=== PATIENT | male | born 1960 | race Caucasian/White ===

== ENCOUNTER 2016-05-06 17:00 | Inpatient (IN) | payer BC ==
[~2016-05-06] VITALS: Ht 180.3 cm; Wt 81.6 kg
[~2016-05-06 17:00] MED LIST: ADDERALL 20 MG20 MG ORAL; ASPIR 8181 MG ORAL; ASPIRIN81 MG ORAL; BACTRIM DOUBLE S1 E1 ORAL; CIPRO500 MG/51 PO; CIPROFLOXACIN500 M2 ORAL; CLINDAMYCIN HC300 MG ORAL; COLACE100 MG ORAL; DIFLUCAN200 MG ORAL; IBUPROFEN600 MG ORAL; KEFLEX500 MG ORAL; KLONOPIN1 MG ORAL; LEVAQUIN750 MG ORAL; LOPRESSOR25 M1 ORAL; OXYCONTIN30 MG ORAL; PROTONIX40 MG ORAL; ROXICODONE30 M1 ORAL; VANCOMYCIN1 GM/2502 IVPB; VIBRAMYCIN100 MG ORAL; ZYVOX600 MG ORAL
[2016-05-06] MEDS ORDERED: Lidocaine 1% 10mg/ml/Epi 0.005mg/ml 30ml vial INJ ONE (17:34)
[2016-05-06] MEDS ORDERED: Vancomycin 1.5gm/D5W 300ml 300 ML IVPB ONE (17:45)
[2016-05-06 17:59] LABS: BASOPHILS % (AUTO) 1.5 % (0.0-2.0); EOSINOPHILS % (AUTO) 2.8 % (0.0-3.0); LYMPHOCYTES % (AUTO) 28.4 % (20.0-45.0); MEAN CORPUSCULAR HEMOGLOBIN 25.5 PG (27.0-31.0); MEAN CORPUSCULAR HGB CONC 31.5 G/DL (32.0-36.0); MEAN CORPUSCULAR VOLUME 81 FL (80-99); MEAN PLATELET VOLUME 6.3 FL (6.5-10.1); MONOCYTES % (AUTO) 5.7 % (1.0-10.0); NEUTROPHILS % (AUTO) 61.6 % (45.0-75.0); PLATELET COUNT 468 K/UL (150-450); RED BLOOD COUNT 5.16 M/UL (4.70-6.10); RED CELL DISTRIBUTION WIDTH 16.6 % (11.6-14.8); WHITE BLOOD COUNT 9.1 K/UL (4.8-10.8)
--- NOTE | 2016-05-06 18:04 | Emergency Room Report ---
History of Present Illness General Chief Complaint: Skin Rash/Abscess Source: Patient Present Illness HPI Patient is a 56-year-old male who presented after increased abscess to his right upper extremity. The patient had recently noticed some subjective fever. He reported having had increased swelling to his right upper extremities. The patient denied injection drug use. Patient reports prior history of abscess Allergies: Coded Allergies: PENICILLINS (Unverified Allergy, Severe, 09/23/15) 09/23/15 tolerates cefepime Patient History Past Medical History: see triage record Reviewed Nursing Documentation: PMH: Agreed, PSxH: Agreed Nursing Documentation-PMH Hx Cardiac Problems: Yes - CHF, cellulitis Hx Hypertension: Yes Hx Pacemaker: No Hx Asthma: No Hx COPD: No Hx Diabetes: Yes Hx Cancer: No Hx Gastrointestinal Problems: Yes Hx Neurological Problems: No Hx Neurologic Surgery: No Hx Brain Shunt: No Review of Systems All Other Systems: negative except mentioned in HPI Physical Exam Vital Signs Date Time Temp Pulse Resp B/P Pulse Ox O2 Delivery O2 Flow Rate FiO2 05/06/16 17:16 97.5 94 17 109/58 98 Room Air Sp02 EP Interpretation: reviewed, normal General Appearance: normal inspection, well appearing, no apparent distress, alert, GCS 15, non-toxic Head: atraumatic ENT: normal ENT inspection, hearing grossly normal, normal voice Neck: normal inspection, full range of motion, supple, no bony tend Respiratory: normal inspection, lungs clear, normal breath sounds, no respiratory distress, no retraction, no wheezing Cardiovascular #1: regular rate, rhythm, no edema Gastrointestinal: normal inspection, normal bowel sounds, non tender, soft, no guarding, no hernia Genitourinary: no CVA tenderness Musculoskeletal: normal inspection, back normal, normal range of motion Neurologic: normal inspection, alert, oriented x3, responsive, floor framer III-XII nml as tested, speech normal Psychiatric: normal inspection, judgement/insight normal, mood/affect normal Skin: other - multiple indurated areas consistent with abscess Procedures Incision and Drainage Incision and Drainage : Consent: Written Site: right hand and wrist Blade Size: 11 I & D Procedure: betadine prep, sterile drapes applied, sterile dressing applied Wound Location: upper extremity Wound's Depth, Shape: superficial, linear Wound Length (cm): 1 Wound Explored: clean Anesthesia: Lidocaine w/ Epi Volume Anesthetic (ccs): 6 Patient Tolerated: Well Complications: None Medical Decision Making Diagnostic Impression: Primary Impression: Abscess and cellulitis Additional Impression: Severe sepsis ER Course Patient is a 48-year-old male presented after increased skin rash and subjective fever. Differential diagnosis included was not limited to abscess, severe sepsis, dehydration and among others.Because of complexity of patient's case laboratory testing and imaging studies were ordered. The laboratory studies are notable for elevated white blood count lactic acid level. The patient was given IV fluids as well as IV antibiotics. The patient was consented for incision and drainage. The patient was noted to have multiple skin lesions however only the lesions on his right hand appeared to require incision and drainage at this time. The the right wrist lesion near his radial artery that was incised with approximately 3 mL of purulent material. The lesion to the dorsum of his right hand had minimal amount of purulent drainage. The patient's lactic acid level is noted be markedly elevated. The patient does not appear to have necrotizing fasciitis. The patient was discussed with Dr. Zimmerman for inpatient management Labs Test 05/06/16 17:40 05/06/16 18:50 05/06/16 19:05 White Blood Count 9.1 K/UL (4.8-10.8) Red Blood Count 5.16 M/UL (4.70-6.10) Hemoglobin 13.1 G/DL (14.2-18.0) Hematocrit 41.7 % (42.0-52.0) Mean Corpuscular Volume 81 FL (80-99) Mean Corpuscular Hemoglobin 25.5 PG (27.0-31.0) Mean Corpuscular Hemoglobin Concent 31.5 G/DL (32.0-36.0) Red Cell Distribution Width 16.6 % (11.6-14.8) Platelet Count 468 K/UL (150-450) Mean Platelet Volume 6.3 FL (6.5-10.1) Neutrophils (%) (Auto) 61.6 % (45.0-75.0) Lymphocytes (%) (Auto) 28.4 % (20.0-45.0) Monocytes (%) (Auto) 5.7 % (1.0-10.0) Eosinophils (%) (Auto) 2.8 % (0.0-3.0) Basophils (%) (Auto) 1.5 % (0.0-2.0) Prothrombin Time 10.6 SEC (9.30-11.50) Prothromb Time International Ratio 1.0 (0.9-1.1) Activated Partial Thromboplast Time 28 SEC (23-33) Sodium Level 137 mEQ/L (135-145) Potassium Level 4.6 mEQ/L (3.4-4.9) Chloride Level 95 mEQ/L (98-107) Carbon Dioxide Level 25 mEQ/L (20-30) Anion Gap 17 (5-15) Blood Urea Nitrogen 18 mg/dL (7-23) Creatinine 1.0 mg/dL (0.7-1.2) Estimat Glomerular Filtration Rate > 60 mL/min (>60) Glucose Level 148 mg/dL (74-106) Lactic Acid Level 5.50 mmol/L (0.66-2.22) 2.70 mmol/L (0.66-2.22) Calcium Level 9.6 mg/dL (8.6-10.2) Total Bilirubin 0.4 mg/dL (0.0-1.2) Aspartate Amino Transf (AST/SGOT) 42 U/L (5-40) Alanine Aminotransferase (ALT/SGPT) 105 U/L (3-41) Alkaline Phosphatase 96 U/L (40-129) Total Creatine Kinase 47 U/L (38-174) Creatine Kinase MB 2.0 ng/mL (< 6.7) Creatine Kinase MB Relative Index 4.2 Troponin I < 0.30 ng/mL (<=0.30) Total Protein 8.1 g/dL (6.6-8.7) Albumin 3.8 g/dL (3.5-5.2) Globulin 4.3 g/dL Albumin/Globulin Ratio 0.8 (1.0-2.7) Urine Color Yellow Urine Appearance Clear Urine pH 5 (4.5-8.0) Urine Specific [place] 1.020 (1.005-1.035) Urine Protein Negative (NEGATIVE) Urine Glucose (UA) Negative (NEGATIVE) Urine Ketones Negative (NEGATIVE) Urine Occult Blood 1+ (NEGATIVE) Urine Nitrite Negative (NEGATIVE) Urine Bilirubin Negative (NEGATIVE) Urine Urobilinogen 4 MG/DL (0.0-1.0) Urine Leukocyte Esterase Negative (NEGATIVE) Urine RBC 0-2 /HPF (0 - 0) Urine WBC 0-2 /HPF (0 - 0) Urine Squamous Epithelial Cells None /LPF (NONE/OCC) Urine Calcium Oxalate Crystals Moderate /LPF (NONE) Urine Bacteria Few /HPF (NONE) Last Vital Signs Date Time Temp Pulse Resp B/P Pulse Ox O2 Delivery O2 Flow Rate FiO2 05/06/16 17:16 97.5 94 17 109/58 98 Room Air Status: improved Disposition: ADMITTED INPATIENT Condition: Serious Referrals: SAMUEL AMARO (PCP) Jim Duarte May 06, 2016 18:04
[2016-05-06 18:13] LABS: ALANINE AMINOTRANSFERASE 105 U/L (3-41); ALBUMIN/GLOBULIN RATIO 0.8 (1.0-2.7); ANION GAP 17 (5-15); ASPARTATE AMINO TRANSFERASE 42 U/L (5-40); CALCIUM 9.6 mg/dL (8.6-10.2); CARBON DIOXIDE 25 mEQ/L (20-30); CHLORIDE 95 mEQ/L (98-107); GLOMERULAR FILTRATION RATE > 60 mL/min (>60); HEMOLYSIS 0; POTASSIUM 4.6 mEQ/L (3.4-4.9); SODIUM 137 mEQ/L (135-145); TOTAL PROTEIN 8.1 g/dL (6.6-8.7); TROPONIN I < 0.30 ng/mL (<=0.30)
[2016-05-06 18:19] LABS: PROTHROMBIN TIME 10.6 SEC (9.30-11.50)
[2016-05-06 18:20] LABS: REFLEX LACTIC ACID YES OR NO YES
[2016-05-06] MEDS ORDERED: Ketorolac 30mg Inj IV ONE (18:45)
[2016-05-06 19:10] VITALS: BP 129/78
[2016-05-06 19:22] LABS: APPEARANCE,URINE CLEAR; KETONES,URINE NEGATIVE (NEGATIVE); LEUKOCYTE ESTERASE ,URINE NEGATIVE (NEGATIVE); NITRITE,URINE NEGATIVE (NEGATIVE); PH,URINE 5 (4.5-8.0); PROTEIN,URINE NEGATIVE (NEGATIVE); UROBILINOGEN,URINE 4 MG/DL (0.0-1.0)
[2016-05-06 19:41] LABS: BACTERIA,URINE FEW /HPF; CALCIUM OXALATE CRYSTALS,UR MODERATE /LPF; RBC,URINE 0-2 /HPF (0 - 0); WBC,URINE 0-2 /HPF (0 - 0)
[2016-05-06 20:33] VITALS: BP 122/67
[2016-05-06] MEDS: oxyCONTIN 10mg tab ORAL SCH (21:50)
[2016-05-06] MEDS ORDERED: cefTRIAXone 1 GM in D5W 50 ML IVPB SCH (23:00)
[2016-05-07] VITALS: BP 133/75
[2016-05-07] MEDS: oxyCODONE 5mg IR tab ORAL PRN ×3 (02:05→16:45)
[2016-05-07 04:00] VITALS: BP 101/66
[2016-05-07] MEDS: Vancomycin 1250mg/D5W 250ml IVPB SCH ×4 (06:05→19:27)
[2016-05-07 08:14] VITALS: BP 129/71
[2016-05-07] MEDS ORDERED: Influenza Virus Vaccine 0.5ml IM ONE (09:00)
[2016-05-07] MEDS: oxyCONTIN 10mg tab ORAL SCH ×2 (09:40→20:55)
--- NOTE | 2016-05-07 10:31 | Diagnostic Imaging Report ---
Indication: SOB Technique: One view of the chest Comparison: 10/20/2015 Findings: Lungs and pleural spaces are clear. Heart size is normal. No significant change Impression: No acute process
[2016-05-07 11:20] LABS: BASOPHILS % (AUTO) 1.8 % (0.0-2.0); EOSINOPHILS % (AUTO) 2.8 % (0.0-3.0); LYMPHOCYTES % (AUTO) 21.9 % (20.0-45.0); MEAN CORPUSCULAR HEMOGLOBIN 24.7 PG (27.0-31.0); MEAN CORPUSCULAR VOLUME 80 FL (80-99); MEAN PLATELET VOLUME 6.5 FL (6.5-10.1); MONOCYTES % (AUTO) 6.8 % (1.0-10.0); NEUTROPHILS % (AUTO) 66.8 % (45.0-75.0); PLATELET COUNT 470 K/UL (150-450); RED BLOOD COUNT 5.19 M/UL (4.70-6.10); RED CELL DISTRIBUTION WIDTH 16.4 % (11.6-14.8); WHITE BLOOD COUNT 7.8 K/UL (4.8-10.8)
[2016-05-07 11:28] LABS: ALANINE AMINOTRANSFERASE 81 U/L (3-41); ALBUMIN/GLOBULIN RATIO 0.8 (1.0-2.7); ANION GAP 14 (5-15); ASPARTATE AMINO TRANSFERASE 32 U/L (5-40); CALCIUM 8.8 mg/dL (8.6-10.2); CARBON DIOXIDE 25 mEQ/L (20-30); CHLORIDE 98 mEQ/L (98-107); CREATININE 0.9 mg/dL (0.7-1.2); GLOMERULAR FILTRATION RATE > 60 mL/min (>60); HEMOLYSIS 0; POTASSIUM 4.2 mEQ/L (3.4-4.9); SODIUM 137 mEQ/L (135-145); TOTAL PROTEIN 6.7 g/dL (6.6-8.7)
[2016-05-07] MEDS ORDERED: Pneumococcal Vaccine 25mcg/0.5ml IM ONE (11:30)
[2016-05-07 11:50] VITALS: BP 125/77
--- NOTE | 2016-05-07 13:39 | History & Physical ---
History and Physical History & Physicial Dictated for Int Med-Dr Zimmerman no. [id number]. KADIE CAMP May 07, 2016 13:39
[2016-05-07 15:44] VITALS: BP 113/68
[2016-05-07] MEDS ORDERED: NS 275ml ONE (17:48)
[2016-05-07] MEDS ORDERED: Tubing IV Secondary IV ONE (17:48)
[2016-05-07 20:01] VITALS: BP 113/61
--- NOTE | 2016-05-07 22:37 | History and Physical Report ---
DATE OF ADMISSION: 05/06/2016 CHIEF COMPLAINT: The patient is a 56-year-old, white male, who presents with complaint of abscess to the right upper extremity. HISTORY OF PRESENT ILLNESS: The patient has a long history of intravenous drug abuse. The patient is also on skin popped opiate. The patient was previously admitted to [facility] in 01/2016 with similar problems. The patient's history of present illness began approximately 4 days ago. The patient began to experience abscess of the right upper extremity. The patient has approximately 4 abscesses, which are currently draining a serosanguineous and purulent material. The patient also has a couple on the left upper extremity. The patient presented to [facility]. The patient was admitted for abscesses of the bilateral upper extremities secondary to IV drug abuse. PAST MEDICAL HISTORY: Significant for, 1. Previous abscess of the upper arms. 2. Opiate dependence. 3. Congestive heart failure. 4. Hypercholesterolemia. 5. Hepatitis C. 6. History of hypertension. PAST SURGICAL HISTORY: Other than incision and drainage of abscesses patient denies. ALLERGIES: Penicillin. SOCIAL HISTORY: The patient is currently unemployed. 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 The patient admits to tobacco use of one pack per day, however, he has not smoked for the past 8 months. The patient denies alcohol use. The patient admits to opiate use intravenously. The patient denies other drugs abuse. REVIEW OF SYSTEMS: Constitutional: The patient denies weight loss or weight gain. The patient denies fevers or chills. HEENT: The patient denies ear or throat pain. Cardiovascular: The patient denies palpitations or chest pain. Chest: The patient denies wheeze or shortness of breath. Abdomen: The patient denies nausea, vomiting, diarrhea, or constipation. Genitourinary: The patient denies dysuria or increased frequency of urination. Neuromuscular: The patient denies seizures or generalized weakness. Integument: The patient complains of multiple episodes over the bilateral upper extremities as above. PHYSICAL EXAMINATION: VITAL SIGNS: Temperature 98.1 degrees, respirations 16, pulse 74, and blood pressure 122/67. GENERAL: The patient is a well-developed, well-nourished, white male, disheveled, in no apparent distress. HEENT: Eyes, pupils are equal and responsive to light and accommodation. Extraocular movements are intact. NECK: Supple without lymphadenopathy. CHEST: Lungs are clear to auscultation bilaterally without wheezes or rales. CARDIOVASCULAR: Regular rhythm and rate. S1 and S2 are normal without murmurs, rubs, or gallops. ABDOMEN: Soft, nontender, and nondistended. Positive bowel sounds. No evidence of hepatosplenomegaly. Currently, no rebound or guarding. EXTREMITIES: Negative for clubbing, cyanosis, or edema. INTEGUMENT: Presence of multiple abscesses over the right upper extremity and two abscess over the left upper extremity. There is erythema at the bilateral triceps area. NEUROLOGIC: Cranial nerves II through XII are grossly intact without focal deficits. Motor strength is 5/5 bilaterally. Deep tendon reflexes are 2+ plantar. LABORATORY STUDIES: WBC 9.1, hemoglobin 13.1, hematocrit 41.7, and platelets 460,000. Sodium 137, potassium 4.6, chloride 95, CO2 25, BUN 18, creatinine 1.0, and glucose 148. ASSESSMENT: This is a 56-year-old white male. 1. Abscess of the right upper extremity. 2. Opiate dependence. 3. Congestive heart failure. 4. Hypercholesterolemia. 5. Hepatitis C. 6. Hypertension. TREATMENT: 1. Abscess to the right upper extremity. An Infectious Disease consultation was obtained with Dr. Esquivel. Blood cultures are pending. A wound culture is pending. The patient has been started empirically on vancomycin and Levaquin. 2. Opiate dependence. The patient may require inpatient detoxication. Continue oxycodone and OxyContin. 3. Congestive heart failure, stable. 4. Hypercholesterolemia, stable. 5. Hepatitis C, stable. 6. Hypertension, stable. Jose Savage M.D. DR: GENO JOB#: [id number] CC:
[2016-05-08] VITALS: BP 127/70
[2016-05-08 04:00] VITALS: BP 124/77
[2016-05-08] MEDS: oxyCODONE 5mg IR tab ORAL PRN ×2 (04:26→16:02)
[2016-05-08] MEDS: Vancomycin 1250mg/D5W 250ml IVPB SCH ×4 (05:59→19:21)
[2016-05-08 07:39] LABS: BASOPHILS % (AUTO) 1.8 % (0.0-2.0); EOSINOPHILS % (AUTO) 3.5 % (0.0-3.0); LYMPHOCYTES % (AUTO) 24.6 % (20.0-45.0); MEAN CORPUSCULAR HEMOGLOBIN 24.8 PG (27.0-31.0); MEAN CORPUSCULAR HGB CONC 30.8 G/DL (32.0-36.0); MEAN CORPUSCULAR VOLUME 81 FL (80-99); MEAN PLATELET VOLUME 6.4 FL (6.5-10.1); MONOCYTES % (AUTO) 5.4 % (1.0-10.0); NEUTROPHILS % (AUTO) 64.8 % (45.0-75.0); PLATELET COUNT 445 K/UL (150-450); RED BLOOD COUNT 4.94 M/UL (4.70-6.10); RED CELL DISTRIBUTION WIDTH 16.1 % (11.6-14.8); WHITE BLOOD COUNT 8.6 K/UL (4.8-10.8)
[2016-05-08 07:54] LABS: ANION GAP 16 (5-15); CARBON DIOXIDE 24 mEQ/L (20-30); CHLORIDE 99 mEQ/L (98-107); CREATININE 0.8 mg/dL (0.7-1.2); GLOMERULAR FILTRATION RATE > 60 mL/min (>60); HEMOLYSIS 0; POTASSIUM 3.9 mEQ/L (3.4-4.9); SODIUM 139 mEQ/L (135-145)
[2016-05-08] MEDS: oxyCONTIN 10mg tab ORAL SCH ×2 (08:40→20:30)
[2016-05-08 12:43] VITALS: BP 110/72
--- NOTE | 2016-05-08 14:43 | Internal Med Progress Note ---
Subjective Date of Service: May 08, 2016 Physician Name Jose Capm Attending Physician Cecilio Zimmerman MD Current Medications Medications (Trade) Dose Ordered Sig/Carmine Route PRN Reason Start Time Stop Time Status Last Admin Dose Admin Acetaminophen 650 mg 650 mg Q4H PRN ORAL Mild Pain/Temp > 100.5 05/06/16 21:15 06/05/16 21:14 Clonazepam (KlonoPIN) 2 mg Q12HR ORAL 05/07/16 09:00 05/14/16 08:59 05/08/16 08:41 Dextrose (Dextrose 50%) STAT PRN IV Hypoglycemia 05/06/16 21:15 06/05/16 21:14 Levofloxacin (Levaquin) 100 ml @ 100 mls/hr Q24H IVPB 05/07/16 15:00 05/14/16 14:59 05/07/16 15:49 Ondansetron HCl (Zofran) 4 mg EVERY 4 HOURS PRN IVP Nausea & Vomiting 05/06/16 21:15 06/05/16 21:14 Oxycodone HCl (OxyCONTIN) 30 mg Q12HR ORAL 05/06/16 21:15 05/13/16 21:14 05/08/16 08:40 Oxycodone HCl (Roxicodone) 10 mg Q4H PRN ORAL Breakthrough Pain 05/06/16 21:15 05/13/16 21:14 05/08/16 04:26 Vancomycin HCl (Vanco rx to dose) 1 ea DAILY PRN MISC Per rx protocol 05/06/16 21:15 06/05/16 21:14 Vancomycin HCl 1.25 gm/Dextrose 250 ml @ 166.667 mls/hr Q12H IVPB 05/07/16 07:00 05/12/16 06:59 05/08/16 05:59 Allergies: Coded Allergies: PENICILLINS (Unverified Allergy, Severe, 09/23/15) 09/23/15 tolerates cefepime ROS Limited/Unobtainable: No Constitutional: Reports: no symptoms HEENT: Reports: no symptoms Cardiovascular: Reports: no symptoms Respiratory: Reports: no symptoms Gastrointestinal/Abdominal: Reports: no symptoms Genitourinary: Reports: no symptoms Neurologic/Psychiatric: Reports: no symptoms Subjective Cover for Int Med-Dr Zimmerman. Await transfer to [facility]. Await surgery consult. Objective Last Vital Signs Date Time Temp Pulse Resp B/P Pulse Ox O2 Delivery O2 Flow Rate FiO2 05/08/16 12:43 97.9 103 20 110/72 97 Room Air General Appearance: WD/WN, no apparent distress, alert EENT: PERRL/EOMI, normal ENT inspection Neck: non-tender, normal alignment, supple, normal inspection Cardiovascular: normal peripheral pulses, normal rate, regular rhythm, no gallop/murmur, no JVD Respiratory/Chest: chest wall non-tender, lungs clear, normal breath sounds, no respiratory distress, no accessory muscle use Abdomen: normal bowel sounds, non tender, soft, no organomegaly, no mass Extremities: other - right arm abscesses Neurologic: general forecaster II-XII grossly normal, no motor/sensory deficits Skin: normal pigmentation, warm/dry, other - abscesses right arm Laboratory Tests Test 05/08/16 07:30 White Blood Count 8.6 K/UL (4.8-10.8) Red Blood Count 4.94 M/UL (4.70-6.10) Hemoglobin 12.3 G/DL (14.2-18.0) L Hematocrit 39.8 % (42.0-52.0) L Mean Corpuscular Volume 81 FL (80-99) Mean Corpuscular Hemoglobin 24.8 PG (27.0-31.0) L Mean Corpuscular Hemoglobin Concent 30.8 G/DL (32.0-36.0) L Red Cell Distribution Width 16.1 % (11.6-14.8) H Platelet Count 445 K/UL (150-450) Mean Platelet Volume 6.4 FL (6.5-10.1) L Neutrophils (%) (Auto) 64.8 % (45.0-75.0) Lymphocytes (%) (Auto) 24.6 % (20.0-45.0) Monocytes (%) (Auto) 5.4 % (1.0-10.0) Eosinophils (%) (Auto) 3.5 % (0.0-3.0) H Basophils (%) (Auto) 1.8 % (0.0-2.0) Sodium Level 139 mEQ/L (135-145) Potassium Level 3.9 mEQ/L (3.4-4.9) Chloride Level 99 mEQ/L (98-107) Carbon Dioxide Level 24 mEQ/L (20-30) Anion Gap 16 (5-15) H Blood Urea Nitrogen 12 mg/dL (7-23) Creatinine 0.8 mg/dL (0.7-1.2) Estimat Glomerular Filtration Rate > 60 mL/min (>60) Glucose Level 140 mg/dL (74-106) H Calcium Level 9.0 mg/dL (8.6-10.2) Opiates Screen Pending Oxycodone Level Pending Blood Methadone Screen Pending Blood Propoxyphene Screen Pending Blood Barbiturates Screen Pending Phencyclidine (PCP) Screen Pending Amphetamines Screen Pending Benzodiazepines Screen Pending Blood Cocaine/Metabolite Screen Pending Marijuana (THC) Screen Pending Blood Drug Screen Comment Pending Microbiology Date/Time Source Procedure Growth Status 05/06/16 17:50 Blood Blood Culture - Preliminary NO GROWTH AFTER 24 HOURS Resulted 05/06/16 17:40 Blood Blood Culture - Preliminary NO GROWTH AFTER 24 HOURS Resulted 05/06/16 19:13 Hand Right Gram Stain - Final Resulted 05/06/16 19:13 Wound Culture - Preliminary Staphylococcus Aureus Resulted Intake and Output 05/07/16 05/08/16 18:59 06:59 Intake Total 1107 ml 1650 ml Output Total 2100 ml 1400 ml Balance -993 ml 250 ml Intake Oral 840 ml 1400 ml IV Total 267 ml 250 ml Output Urine Total 2100 ml 1400 ml # Voids 1 3 Assessment/Plan Problem List: (1) Hepatitis C (2) Abscess and cellulitis Assessment & Plan: Right arm. Await ID consult and surgery consult. Cont vanco and levaquin (3) Opiate dependence, continuous Assessment & Plan: Cont oxycodone prn and oxycontin routine. Await transfer to [facility] @ . [facility] hosp @ [place] (4) CHF (congestive heart failure) (5) Hypertension (6) Hypercholesteremia Status: not improved JOSE CAMP May 08, 2016 14:43
--- NOTE | 2016-05-08 14:44 | Infectious Diseases Prog Note ---
Assessment/Plan Assessment/Plan A) 1) bilateral arm abscess/cellulitis - multiple 2) hep c, cps, cpm, opiate dependancy, dm, gerd, htn, anemia, ? neuro dx, leukopenia, chf hx, hypercholesteremia, hx renal failure 3) allergies - pcn, fh-nc, mar noted, sh-past smoker, mar noted 4) notes and records reviewed 5) d/w RN and pt P) 1) vancomycin and cefepime (tolerated in past) 2) surgery evaluation for I/D 3) check labs 4) continue other treatment per primary 5) orders entered and noted 6) d/w pharmacy 7) d/w Dr. Savage Subjective Allergies: Coded Allergies: PENICILLINS (Unverified Allergy, Severe, 09/23/15) 09/23/15 tolerates cefepime Objective Vital Signs Last 24 Hour Vital Signs Date Time Temp Pulse Resp B/P Pulse Ox O2 Delivery O2 Flow Rate FiO2 05/08/16 12:43 97.9 103 20 110/72 97 Room Air 05/08/16 04:00 99.0 98 17 124/77 99 05/08/16 00:00 97.7 101 18 127/70 98 Room Air 05/07/16 20:01 98.2 100 21 113/61 96 Room Air 05/07/16 15:44 98.1 91 21 113/68 100 Room Air Height (Feet): 5 Height (Inches): 11.00 Weight (Pounds): 180 Microbiology Date/Time Source Procedure Growth Status 05/06/16 17:50 Blood Blood Culture - Preliminary NO GROWTH AFTER 24 HOURS Resulted 05/06/16 17:40 Blood Blood Culture - Preliminary NO GROWTH AFTER 24 HOURS Resulted 05/06/16 19:13 Hand Right Gram Stain - Final Resulted 05/06/16 19:13 Wound Culture - Preliminary Staphylococcus Aureus Resulted Laboratory Tests Test 05/08/16 07:30 White Blood Count 8.6 K/UL (4.8-10.8) Red Blood Count 4.94 M/UL (4.70-6.10) Hemoglobin 12.3 G/DL (14.2-18.0) L Hematocrit 39.8 % (42.0-52.0) L Mean Corpuscular Volume 81 FL (80-99) Mean Corpuscular Hemoglobin 24.8 PG (27.0-31.0) L Mean Corpuscular Hemoglobin Concent 30.8 G/DL (32.0-36.0) L Red Cell Distribution Width 16.1 % (11.6-14.8) H Platelet Count 445 K/UL (150-450) Mean Platelet Volume 6.4 FL (6.5-10.1) L Neutrophils (%) (Auto) 64.8 % (45.0-75.0) Lymphocytes (%) (Auto) 24.6 % (20.0-45.0) Monocytes (%) (Auto) 5.4 % (1.0-10.0) Eosinophils (%) (Auto) 3.5 % (0.0-3.0) H Basophils (%) (Auto) 1.8 % (0.0-2.0) Sodium Level 139 mEQ/L (135-145) Potassium Level 3.9 mEQ/L (3.4-4.9) Chloride Level 99 mEQ/L (98-107) Carbon Dioxide Level 24 mEQ/L (20-30) Anion Gap 16 (5-15) H Blood Urea Nitrogen 12 mg/dL (7-23) Creatinine 0.8 mg/dL (0.7-1.2) Estimat Glomerular Filtration Rate > 60 mL/min (>60) Glucose Level 140 mg/dL (74-106) H Calcium Level 9.0 mg/dL (8.6-10.2) Opiates Screen Pending Oxycodone Level Pending Blood Methadone Screen Pending Blood Propoxyphene Screen Pending Blood Barbiturates Screen Pending Phencyclidine (PCP) Screen Pending Amphetamines Screen Pending Benzodiazepines Screen Pending Blood Cocaine/Metabolite Screen Pending Marijuana (THC) Screen Pending Blood Drug Screen Comment Pending Current Medications Medications (Trade) Dose Ordered Sig/Carmine Route PRN Reason Start Time Stop Time Status Last Admin Dose Admin Acetaminophen 650 mg 650 mg Q4H PRN ORAL Mild Pain/Temp > 100.5 05/06/16 21:15 06/05/16 21:14 Cefepime HCl/ Dextrose (Maxipime/D5W 50ml) 50 ml @ 100 mls/hr Q12HR IVPB 05/08/16 21:00 05/15/16 20:59 UNV Clonazepam (KlonoPIN) 2 mg Q12HR ORAL 05/07/16 09:00 05/14/16 08:59 05/08/16 08:41 Dextrose (Dextrose 50%) STAT PRN IV Hypoglycemia 05/06/16 21:15 06/05/16 21:14 Ondansetron HCl (Zofran) 4 mg EVERY 4 HOURS PRN IVP Nausea & Vomiting 05/06/16 21:15 06/05/16 21:14 Oxycodone HCl (OxyCONTIN) 30 mg Q12HR ORAL 05/06/16 21:15 05/13/16 21:14 05/08/16 08:40 Oxycodone HCl (Roxicodone) 10 mg Q4H PRN ORAL Breakthrough Pain 05/06/16 21:15 05/13/16 21:14 05/08/16 04:26 Vancomycin HCl (Vanco rx to dose) 1 ea DAILY PRN MISC Per rx protocol 05/06/16 21:15 06/05/16 21:14 Vancomycin HCl 1.25 gm/Dextrose 250 ml @ 166.667 mls/hr Q12H IVPB 05/07/16 07:00 05/12/16 06:59 05/08/16 05:59 SAMUEL AMARO May 08, 2016 14:44
[2016-05-08 16:00] VITALS: BP 143/50
[2016-05-08 20:00] VITALS: BP 138/79
--- NOTE | 2016-05-08 20:57 | Consultation ---
DATE OF CONSULTATION: 05/08/2016 INFECTIOUS DISEASE CONSULTATION REFERRING PHYSICIAN: 1. Cecilio Zimmerman M.D. 2. Jose Savage M.D. REASON FOR CONSULTATION: Bilateral arm abscesses. The patient's chief complaint is bilateral arm abscesses and also cellulitis. HISTORY OF PRESENT ILLNESS: This is a 56-year-old male who came into [facility] with bilateral arm abscesses and cellulitis. There are multiple abscesses, seen in both right and left upper extremities. The abscesses I saw are painful, and also inflamed. The patient looks like he was drained, may be in the emergency room, I reviewed the records to see if he was drained in the emergency room. He did get an incision and drainage of one of the upper extremity abscess. However, he has multiple abscess and will need further surgical intervention, incision and drainage. Infectious Disease consultation was requested for antibiotic management. On one of the abscess is growing staph aureus, sensitivities are pending. The patient will be on vancomycin for now. Discussed with Dr. Savage and pharmacy. MAR was noted. Orders were noted. Notes and records were reviewed. Case was communicated with RN. PAST MEDICAL HISTORY: Includes the following, obtained from the records and discussing with the patient. The patient has a past medical history of abscess in the past, cellulitis, history of hepatitis C, chronic pain syndrome, chronic pain management, opiate dependence, history of diabetes, GERD, hypertension, anemia, questionable neurologic disease, leukopenia, CHF, hypercholesterolemia, and history of renal failure in the past. MEDICATIONS: Upon reviewing the MAR, the patient is on following medications. The patient is on vancomycin. He was on Levaquin, which he discontinued. He is also on Klonopin. He is on Zofran and Tylenol. Outside medications were noted and reconciliated. He was on clonazepam. Please see medications and past medical history and medical order. ALLERGIES: Penicillin, but he tolerates cephalosporin. SOCIAL HISTORY: Past smoker. No alcohol or drug abuse. FAMILY HISTORY: Noncontributory. REVIEW OF SYSTEMS: Constitutional: The patient has generalized weakness and fatigue. No fever or chills. No weight loss. Head And Neck: No thrush, dysphagia, or sinus tenderness. Cardiac: Denies chest pain or palpitations. Gastrointestinal: No nausea, vomiting or diarrhea. Genitourinary: No dysuria or frequency. Pulmonary: No shortness of breath, cough, or sputum production. Skin: He does have abscess in both upper extremities noted and pain. Extremities: No extremity pain. Neurologic: No seizures. PHYSICAL EXAMINATION: GENERAL: The patient is alert and responsive, oriented x3, no acute distress. He has generalized weakness noted. VITAL SIGNS: Temperature 97.9 degrees, pulse rate 103, respiratory rate 20, blood pressure 110/72, and saturating 97%. HEAD AND NECK: Oral exam, no thrush. Eye exam, no icterus. Neck is supple. No JVD. No sinus tenderness. Normocephalic. No facial droop. No neck stiffness. No tachypnea. LUNGS: Clear bilaterally. No rhonchi or rales. HEART: Regular. No gallop or murmur. No friction rub. ABDOMEN: Soft. Positive bowel sounds. Nontender. No organomegaly. SKIN: No rash or dermatitis. MUSCULOSKELETAL: No effusions or contractures. Legs are without cellulitis. EXTREMITIES: Upper extremity exam, he has multiple abscesses inflamed with secondary to cellulitis in bilateral extremities, noted fluctuance. PERIPHERAL VASCULAR: No cyanosis or gangrene. RECTAL: Deferred. GENITOURINARY: No Harman. LINES: Line sites is without phlebitis. NEUROLOGIC: Intact. Nonfocal. Alert and oriented x3. LABORATORY AND DIAGNOSTIC DATA: Creatinine 0.8. White count 8.6 and hemoglobin 12.3. Cultures, blood cultures are negative. Wound culture for abscesses on the right shows staph aureus. ASSESSMENT AND PLAN: 1. The patient is a 56-year-old male with bilateral likely staphylococcus aureus upper extremity abscesses, rule out methicillin-resistant Staphylococcus aureus, which I believe he has a history of. The patient to continue on vancomycin IV for staphylococcus aureus and methicillin-resistant Staphylococcus aureus coverage. The patient will need further incision and drainage of the multiple abscesses and cellulitis. I suggest a surgical evaluation by , called surgery to see this patient for incision and drainage candidate. Wound care protocol. Continue IV vancomycin and surgical followup and check the labs. 2. Hepatitis C. 3. Chronic pain syndrome management. 4. Opiate dependence. 5. Diabetes mellitus. 6. Gastroesophageal reflux disease. 7. Hypertension. 8. Anemia. 9. Questionable neurologic disease. 10. Leukopenia history. 11. History of congestive heart failure. 12. Hypercholesterolemia. 13. History of renal failure. 14. Allergy to penicillin. 15. Social history, past smoker. 16. Case discussed with Dr. Savage. 17. Case discussed with RN. 18. Case discussed with the patient. 19. MAR was noted. 20. Notes were reviewed. Thank you. I will follow. Glenny Esquivel M.D. DR: BEVERLY JOB#: [id number] CC:
[2016-05-09 00:04] VITALS: BP 121/76
[2016-05-09] MEDS: oxyCODONE 5mg IR tab ORAL PRN ×5 (02:10→23:27)
[2016-05-09 04:09] VITALS: BP 134/74
[2016-05-09] MEDS: Vancomycin 1250mg/D5W 250ml IVPB SCH ×4 (06:08→18:53)
--- NOTE | 2016-05-09 08:10 | Pre-Procedure Note/Attestation ---
Pre-Procedure Note/Attestation Complete Prior to Procedure Planned Procedure: left Procedure Narrative: incision and drainage, irrigation and packing of left arm abscesses Indications for Procedure Pre-Operative Diagnosis: left arm abscesses Attestation I attest that I discussed the nature of the procedure; its benefits; risks and complications; and alternatives (and the risks and benefits of such alternatives ), prior to the procedure, with the patient (or the patient's legal corporate sales representative). I attest that, if there was a reasonable possibility of needing a blood transfusion, the patient (or the patient's legal corporate sales representative) was given the [facility] standardized written summary, pursuant to the Noah Gina Blood Safety Act ([place] Health and Safety Code # 1645, as amended). I attest that I re-evaluated the patient just prior to the surgery and that there has been no change in the patient's H&P, except as documented below:TAYLOR Plunkett May 09, 2016 08:10
--- NOTE | 2016-05-09 08:20 | Brief Operative Note ---
Immediate Post Operative Note Operative Note Pre-op Diagnosis: left arm abscesses Procedure: incision and drainage irrigation and packing of left arm abscesses Post-op Diagnosis: same Surgeon: iram Anesthesiologist: local by surgeon Anesthesia: local Specimen: none Complications: none Condition: stable Estimated Blood Loss: minimal Drains: none Packing: iodoform gauze Implant(s) used?: No TAYLOR JASSO May 09, 2016 08:20
[2016-05-09] MEDS: oxyCONTIN 10mg tab ORAL SCH ×2 (09:26→20:34)
--- NOTE | 2016-05-09 10:08 | Consultation ---
DATE OF CONSULTATION: 05/09/2016 PLANT INSPECTOR: Kelvin Garcia M.D. REASON FOR CONSULTATION: 1. IVDA 2. Left arm abscesses. INDICATION: This 56-year-old gentleman well known to us from multiple previous admissions. The patient has an unfortunate history of IV drug use. He has had multiple previous abscesses in the past and has undergone incision drainage of abscesses here. He had skin popped and opiate began approximately six days ago to have inflammation and pain of the right arm and also developed large wounds on the left arm. The ones on the right arm had drained spontaneously. He has large fluctuant masses on the left upper arm, one above the antecubital fossa and one over the lateral biceps with erythema and local tenderness, mass affect. I was asked to see the patient for surgical management of same. PAST MEDICAL HISTORY: Aside from IVDA, has history of congestive heart failure, hypercholesterolemia, hepatitis C, and hypertension. No other surgeries other than 90s. ALLERGIES: To penicillin. 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 Denies EtOH. PHYSICAL EXAMINATION: GENERAL: Reveals a well-developed, pleasant gentleman, in no acute distress, awake, alert and cooperative. VITAL SIGNS: His vital signs show a temperature 97.0 degrees, pulse of 100, respiratory rate 18, and blood pressure 134/74. HEENT: Normocephalic. Pupils are round and reactive to light. His throat is clear. NECK: Supple. HEART: Normal sinus rhythm. ABDOMEN: Soft and nontender. EXTREMITIES: The patient has multiple abscesses of the right upper extremity that appeared to be well drained has two abscesses on the left arm, one at antecubital fossa laterally and one at the level of the biceps with erythema. LABORATORY DATA: Show a white blood count of 8.6, hemoglobin 12.2, hematocrit 39.8, and platelet count is 445,000. Coagulations show PT of 10.6, INR of 1. Chemistry shows a sodium 139, potassium 3.9, chloride 99, bicarbonate of 24, BUN is 12, creatinine 0.8, and glucose is 140, alkaline phosphatase is 80, AST of 32, ALT of 31, total bilirubin 0.3. Total protein 6.7, albumin 3.1. Gram stain of the right hand did grow Staph aureus. Sensitivity pending. Blood cultures were negative. IMPRESSION: 1. History of intravenous drug abuse. 2. Multiple abscesses bilateral extremities. RECOMMENDATION: The patient will undergo incision, drainage, irrigation, packing of left arm abscesses. He understands above procedures, benefits, complications and agrees. Kelvin Garcia M.D. DR: MAJOR JOB#: [id number] CC: EVA
--- NOTE | 2016-05-09 10:08 | Operative Note - Dictated ---
DATE OF OPERATION: 05/09/2016 SURGEON: Kelvin Garcia M.D. ANESTHESIA: Local by surgeon. PREOPERATIVE DIAGNOSIS: 1. IVDA. 2. Left arm abscesses. POSTOPERATIVE DIAGNOSIS: 1. IVDA. 2. Left arm abscesses PROCEDURE: Incision, drainage, irrigation, packing of left arm abscesses. INDICATION FOR PROCEDURE: After informed consent was obtained, the patient was placed in supine position. The area was prepped with Betadine and draped in a sterile manner. Local infiltration with total 10 mL of 1% lidocaine with epinephrine over both abscesses and 2 cm long incision was made over each abscess with immediate drainage of laudable pus. The pus was cultured. Pus was expressed from both abscess cavities then irrigated with lidocaine and normal saline. Wounds gently probed to make sure there is no undrained areas. Wound was packed with a strip of iodoform gauze and then wrapped with 4x4s and a Kerlix roll. Blood loss for the entire procedure was less than 10 mL. The patient tolerated the procedure well. Kelvin Garcia M.D. DR: MAJOR JOB#: [id number] CC: EVA
[2016-05-09 12:00] VITALS: BP 144/69
[2016-05-09 13:06] VITALS: BP 144/63
[2016-05-09 14:38] LABS: BASOPHILS % (AUTO) 1.5 % (0.0-2.0); EOSINOPHILS % (AUTO) 4.7 % (0.0-3.0); LYMPHOCYTES % (AUTO) 29.9 % (20.0-45.0); MEAN CORPUSCULAR HEMOGLOBIN 25.8 PG (27.0-31.0); MEAN CORPUSCULAR HGB CONC 32.7 G/DL (32.0-36.0); MEAN CORPUSCULAR VOLUME 79 FL (80-99); MEAN PLATELET VOLUME 6.4 FL (6.5-10.1); MONOCYTES % (AUTO) 4.9 % (1.0-10.0); NEUTROPHILS % (AUTO) 59.1 % (45.0-75.0); PLATELET COUNT 423 K/UL (150-450); RED BLOOD COUNT 4.71 M/UL (4.70-6.10); RED CELL DISTRIBUTION WIDTH 16.3 % (11.6-14.8); WHITE BLOOD COUNT 8.9 K/UL (4.8-10.8)
[2016-05-09 14:55] LABS: ANION GAP 14 (5-15); CARBON DIOXIDE 27 mEQ/L (20-30); CHLORIDE 98 mEQ/L (98-107); CREATININE 0.9 mg/dL (0.7-1.2); GLOMERULAR FILTRATION RATE > 60 mL/min (>60); HEMOLYSIS 4; SODIUM 139 mEQ/L (135-145)
[2016-05-09 17:00] VITALS: BP 136/77
[2016-05-09] MEDS ORDERED: NS 275ml ONE (17:12)
--- NOTE | 2016-05-09 19:11 | Internal Med Progress Note ---
Subjective Date of Service: May 09, 2016 Physician Name Kadie Savage Attending Physician Cecilio Zimmerman MD Current Medications Medications (Trade) Dose Ordered Sig/Carmine Route PRN Reason Start Time Stop Time Status Last Admin Dose Admin Acetaminophen 650 mg 650 mg Q4H PRN ORAL Mild Pain/Temp > 100.5 05/06/16 21:15 06/05/16 21:14 Clonazepam (KlonoPIN) 2 mg Q12HR ORAL 05/07/16 09:00 05/14/16 08:59 05/09/16 09:26 Dextrose (Dextrose 50%) STAT PRN IV Hypoglycemia 05/06/16 21:15 06/05/16 21:14 Ondansetron HCl (Zofran) 4 mg EVERY 4 HOURS PRN IVP Nausea & Vomiting 05/06/16 21:15 06/05/16 21:14 Oxycodone HCl (OxyCONTIN) 30 mg Q12HR ORAL 05/06/16 21:15 05/13/16 21:14 05/09/16 09:26 Oxycodone HCl (Roxicodone) 10 mg Q4H PRN ORAL Breakthrough Pain 05/06/16 21:15 05/13/16 21:14 05/09/16 16:55 Vancomycin HCl (Vanco rx to dose) 1 ea DAILY PRN MISC Per rx protocol 05/06/16 21:15 06/05/16 21:14 Vancomycin HCl/ Dextrose (Vancomycin/D5W 250ml) 250 ml @ 166.667 mls/hr Q12H IVPB 05/07/16 07:00 05/12/16 06:59 05/09/16 18:53 Allergies: Coded Allergies: PENICILLINS (Unverified Allergy, Severe, 09/23/15) 09/23/15 tolerates cefepime ROS Limited/Unobtainable: No Subjective Cover for Int Twin-Dr Zimmerman. Not accepted to [facility]. S/P incision and drainage left arm abscess today 05/09/16. Objective Last Vital Signs Date Time Temp Pulse Resp B/P Pulse Ox O2 Delivery O2 Flow Rate FiO2 05/09/16 17:00 97.7 96 18 136/77 97 Room Air Laboratory Tests Test 05/09/16 14:15 White Blood Count 8.9 K/UL (4.8-10.8) Red Blood Count 4.71 M/UL (4.70-6.10) Hemoglobin 12.2 G/DL (14.2-18.0) L Hematocrit 37.2 % (42.0-52.0) L Mean Corpuscular Volume 79 FL (80-99) L Mean Corpuscular Hemoglobin 25.8 PG (27.0-31.0) L Mean Corpuscular Hemoglobin Concent 32.7 G/DL (32.0-36.0) Red Cell Distribution Width 16.3 % (11.6-14.8) H Platelet Count 423 K/UL (150-450) Mean Platelet Volume 6.4 FL (6.5-10.1) L Neutrophils (%) (Auto) 59.1 % (45.0-75.0) Lymphocytes (%) (Auto) 29.9 % (20.0-45.0) Monocytes (%) (Auto) 4.9 % (1.0-10.0) Eosinophils (%) (Auto) 4.7 % (0.0-3.0) H Basophils (%) (Auto) 1.5 % (0.0-2.0) Sodium Level 139 mEQ/L (135-145) Potassium Level 4.0 mEQ/L (3.4-4.9) Chloride Level 98 mEQ/L (98-107) Carbon Dioxide Level 27 mEQ/L (20-30) Anion Gap 14 (5-15) Blood Urea Nitrogen 15 mg/dL (7-23) Creatinine 0.9 mg/dL (0.7-1.2) Estimat Glomerular Filtration Rate > 60 mL/min (>60) Glucose Level 143 mg/dL (74-106) H Calcium Level 9.0 mg/dL (8.6-10.2) Microbiology Date/Time Source Procedure Growth Status 05/06/16 19:13 Hand Right Gram Stain - Final Resulted 05/06/16 19:13 Wound Culture - Preliminary Staphylococcus Aureus Resulted Intake and Output 05/08/16 05/09/16 19:00 07:00 Intake Total 1150 ml 1350 ml Output Total 775 ml 800 ml Balance 375 ml 550 ml Intake Oral 1150 ml 1100 ml IV Total 250 ml Output Urine Total 775 ml 800 ml # Voids 1 3 Objective General Appearance: WD/WN, no apparent distress, alert EENT: PERRL/EOMI, normal ENT inspection Neck: non-tender, normal alignment, supple, normal inspection Cardiovascular: normal peripheral pulses, normal rate, regular rhythm, no gallop/murmur, no JVD Respiratory/Chest: chest wall non-tender, lungs clear, normal breath sounds, no respiratory distress, no accessory muscle use Abdomen: normal bowel sounds, non tender, soft, no organomegaly, no mass Extremities: other - right arm abscesses 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 See ID consult and surgery consult. S/P incision and drainage today 05/09/16. Cont vanco and D/C levaquin per ID (3) Opiate dependence, continuous Assessment & Plan: Cont oxycodone prn and oxycontin routine. Not accepted to [facility] hosp @ [place]; await sober living (eg. [place] vs [facility] vs the [place], etc) (4) CHF (congestive heart failure) (5) Hypertension (6) Hypercholesteremia Assessment/Plan Discharge planning: Sober living vs SNF for IV KADIE Buitrago May 09, 2016 19:11
[2016-05-09 20:00] VITALS: BP 138/79
[2016-05-10] VITALS: BP 164/118
[2016-05-10] MEDS: oxyCODONE 5mg IR tab ORAL PRN ×4 (03:34→23:08)
[2016-05-10 04:00] VITALS: BP 109/70
[2016-05-10] MEDS ORDERED: Heparin 2000 units/Ns 1000ml INJ SCH (06:00)
[2016-05-10] MEDS ORDERED: Sodium Bicarbonate 8.4% 50ml Inj IV SCH (06:00)
[2016-05-10] MEDS ORDERED: Lidocaine 1% Plain 30 ml INJ SCH (06:00)
[2016-05-10] MEDS: Vancomycin 1250mg/D5W 250ml IVPB SCH ×2 (06:08)
[2016-05-10] MEDS: oxyCONTIN 10mg tab ORAL SCH ×2 (09:09→21:39)
--- NOTE | 2016-05-10 09:14 | General Surgery Progress Note ---
General Surgery-Progress Note Subjective Reason for Consult upper extremity abscess Procedure Performed I&D left upper extremity abscess Symptoms: improved Additional Comments patient seen and examined at bedside without acute events. doing well. comfortable. no n/v/f/c. tolerating oral diet. states pain from I&D but improved as compared to prior. Objective Last 24 Hour Vital Signs Date Time Temp Pulse Resp B/P Pulse Ox O2 Delivery O2 Flow Rate FiO2 05/10/16 04:00 97.9 77 18 109/70 95 Room Air 05/10/16 00:00 97.9 86 18 164/118 98 Room Air 05/09/16 20:00 98.2 100 18 138/79 95 Room Air 05/09/16 17:00 97.7 96 18 136/77 97 Room Air 05/09/16 13:06 98.0 102 19 144/63 99 Room Air 05/09/16 12:00 98.0 102 18 144/69 99 Room Air I&O Intake and Output 05/09/16 05/10/16 19:00 07:00 Intake Total 840 ml 1250 ml Output Total 1900 ml Balance 840 ml -650 ml Intake Oral 840 ml 1000 ml IV Total 250 ml Output Urine Total 1900 ml # Voids 2 Dressing: dry Wound: clean Drains: none Cardiovascular: RSR Respiratory: clear Abdomen: soft, non-tender Extremities: edema, other - left upper extremity wound packing removed, wound clean. no purulent drainage noted. new packing and dressings applied. right upper extremity wounds clean and healing. Laboratory Tests Test 05/09/16 14:15 White Blood Count 8.9 K/UL (4.8-10.8) Red Blood Count 4.71 M/UL (4.70-6.10) Hemoglobin 12.2 G/DL (14.2-18.0) L Hematocrit 37.2 % (42.0-52.0) L Mean Corpuscular Volume 79 FL (80-99) L Mean Corpuscular Hemoglobin 25.8 PG (27.0-31.0) L Mean Corpuscular Hemoglobin Concent 32.7 G/DL (32.0-36.0) Red Cell Distribution Width 16.3 % (11.6-14.8) H Platelet Count 423 K/UL (150-450) Mean Platelet Volume 6.4 FL (6.5-10.1) L Neutrophils (%) (Auto) 59.1 % (45.0-75.0) Lymphocytes (%) (Auto) 29.9 % (20.0-45.0) Monocytes (%) (Auto) 4.9 % (1.0-10.0) Eosinophils (%) (Auto) 4.7 % (0.0-3.0) H Basophils (%) (Auto) 1.5 % (0.0-2.0) Sodium Level 139 mEQ/L (135-145) Potassium Level 4.0 mEQ/L (3.4-4.9) Chloride Level 98 mEQ/L (98-107) Carbon Dioxide Level 27 mEQ/L (20-30) Anion Gap 14 (5-15) Blood Urea Nitrogen 15 mg/dL (7-23) Creatinine 0.9 mg/dL (0.7-1.2) Estimat Glomerular Filtration Rate > 60 mL/min (>60) Glucose Level 143 mg/dL (74-106) H Calcium Level 9.0 mg/dL (8.6-10.2) Assessment Post-op Diagnosis 56 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 also has multiple chronic wounds from prior I&D and infections. states he has had these for a while and attempts care of them himself in the streets sometimes. All wounds evaluated, cleaned, and new dressings applied. Plan Additional Comments Continue with current care and management IV Abx Wound care - Left Upper Extremity packing and dressings BID ; Right upper extremity w/ dressings PRN okay to use upper extremities without limitations okay to shower - remove dressings, shower, then apply new dressings. okay to get wounds wet. Olegario Suero MD May 10, 2016 09:14
[2016-05-10 09:51] LABS: BASOPHILS % (AUTO) 2.2 % (0.0-2.0); EOSINOPHILS % (AUTO) 6.6 % (0.0-3.0); LYMPHOCYTES % (AUTO) 35.5 % (20.0-45.0); MEAN CORPUSCULAR HEMOGLOBIN 25.7 PG (27.0-31.0); MEAN CORPUSCULAR HGB CONC 31.4 G/DL (32.0-36.0); MEAN CORPUSCULAR VOLUME 82 FL (80-99); MEAN PLATELET VOLUME 6.5 FL (6.5-10.1); MONOCYTES % (AUTO) 7.5 % (1.0-10.0); NEUTROPHILS % (AUTO) 48.3 % (45.0-75.0); PLATELET COUNT 407 K/UL (150-450); RED CELL DISTRIBUTION WIDTH 16.4 % (11.6-14.8); WHITE BLOOD COUNT 7.4 K/UL (4.8-10.8)
[2016-05-10 10:04] LABS: ANION GAP 12 (5-15); CALCIUM 9.2 mg/dL (8.6-10.2); CARBON DIOXIDE 27 mEQ/L (20-30); CHLORIDE 98 mEQ/L (98-107); GLOMERULAR FILTRATION RATE > 60 mL/min (>60); HEMOLYSIS 3; POTASSIUM 4.1 mEQ/L (3.4-4.9); SODIUM 137 mEQ/L (135-145)
--- NOTE | 2016-05-10 14:33 | Infectious Diseases Prog Note ---
Assessment/Plan Assessment/Plan A) 1) mrsa bilateral arm abscess/cellulitis - s/p I/D, wounds clean per surgery note 2) hep c, cps, cpm, opiate dependancy, dm, gerd, htn, anemia, ? neuro dx, leukopenia, chf hx, hypercholesteremia, hx renal failure 3) allergies - pcn, fh-nc, mar noted, sh-past smoker, mar noted 4) notes and records reviewed 5) d/w RN and pt P) 1) vancomycin for now 2) consider oral abx in next 24 hrs if continues to improve, treat total of 10 days post I/D 3) check labs 4) continue other treatment per primary, wound care per surgery 5) orders entered and noted 6) d/w pharmacy 7) d/w Dr. Savage Subjective Constitutional: Denies: fever HEENT: Denies: congestion Respiratory: Denies: shortness of breath Gastrointestinal/Abdominal: Denies: diarrhea, vomiting Genitourinary: Reports: other, Denies: dysuria, hematuria Neurologic: Denies: headache - no preston Psychiatric: Denies: depression Skin: Denies: rash Hematologic: Denies: bleeding Musculoskeletal: Denies: pain Allergies: Coded Allergies: PENICILLINS (Unverified Allergy, Severe, 09/23/15) 09/23/15 tolerates cefepime Objective Vital Signs Last 24 Hour Vital Signs Date Time Temp Pulse Resp B/P Pulse Ox O2 Delivery O2 Flow Rate FiO2 05/10/16 04:00 97.9 77 18 109/70 95 Room Air 05/10/16 00:00 97.9 86 18 164/118 98 Room Air 05/09/16 20:00 98.2 100 18 138/79 95 Room Air 05/09/16 17:00 97.7 96 18 136/77 97 Room Air Height (Feet): 5 Height (Inches): 11.00 Weight (Pounds): 180 General Appearance: no acute distress HEENT: normocephalic, atraumatic, anicteric, mucous membranes moist, PERRL, EOMI, pharynx normal, supple, no JVD Respiratory/Chest: lungs clear, normal breath sounds, no respiratory distress, no accessory muscle use Cardiovascular: normal rate, regular rhythm, no gallop/murmur, no JVD Abdomen: normal bowel sounds, soft, non tender, no organomegaly, non distended Genitourinary: other - no foely Extremities: no cyanosis, other - s/p I/D abscesses, wounds covered Skin: no rash 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, alert, oriented x 3, responsive Lymphatic: no neck adenopathy Musculoskeletal: no effusion Objective chest x-ray - negative Microbiology Date/Time Source Procedure Growth Status 05/09/16 08:05 Wound Gram Stain - Final Resulted 05/09/16 08:05 Wound Wound Culture - Preliminary Resulted wc - mrsa Laboratory Tests Test 05/09/16 14:15 05/10/16 09:15 White Blood Count 8.9 K/UL (4.8-10.8) 7.4 K/UL (4.8-10.8) Red Blood Count 4.71 M/UL (4.70-6.10) 4.70 M/UL (4.70-6.10) Hemoglobin 12.2 G/DL (14.2-18.0) L 12.1 G/DL (14.2-18.0) L Hematocrit 37.2 % (42.0-52.0) L 38.5 % (42.0-52.0) L Mean Corpuscular Volume 79 FL (80-99) L 82 FL (80-99) Mean Corpuscular Hemoglobin 25.8 PG (27.0-31.0) L 25.7 PG (27.0-31.0) L Mean Corpuscular Hemoglobin Concent 32.7 G/DL (32.0-36.0) 31.4 G/DL (32.0-36.0) L Red Cell Distribution Width 16.3 % (11.6-14.8) H 16.4 % (11.6-14.8) H Platelet Count 423 K/UL (150-450) 407 K/UL (150-450) Mean Platelet Volume 6.4 FL (6.5-10.1) L 6.5 FL (6.5-10.1) Neutrophils (%) (Auto) 59.1 % (45.0-75.0) 48.3 % (45.0-75.0) Lymphocytes (%) (Auto) 29.9 % (20.0-45.0) 35.5 % (20.0-45.0) Monocytes (%) (Auto) 4.9 % (1.0-10.0) 7.5 % (1.0-10.0) Eosinophils (%) (Auto) 4.7 % (0.0-3.0) H 6.6 % (0.0-3.0) H Basophils (%) (Auto) 1.5 % (0.0-2.0) 2.2 % (0.0-2.0) H Sodium Level 139 mEQ/L (135-145) 137 mEQ/L (135-145) Potassium Level 4.0 mEQ/L (3.4-4.9) 4.1 mEQ/L (3.4-4.9) Chloride Level 98 mEQ/L (98-107) 98 mEQ/L (98-107) Carbon Dioxide Level 27 mEQ/L (20-30) 27 mEQ/L (20-30) Anion Gap 14 (5-15) 12 (5-15) Blood Urea Nitrogen 15 mg/dL (7-23) 15 mg/dL (7-23) Creatinine 0.9 mg/dL (0.7-1.2) 1.0 mg/dL (0.7-1.2) Estimat Glomerular Filtration Rate > 60 mL/min (>60) > 60 mL/min (>60) Glucose Level 143 mg/dL (74-106) H 110 mg/dL (74-106) H Calcium Level 9.0 mg/dL (8.6-10.2) 9.2 mg/dL (8.6-10.2) Current Medications Medications (Trade) Dose Ordered Sig/Carmine Route PRN Reason Start Time Stop Time Status Last Admin Dose Admin Acetaminophen 650 mg 650 mg Q4H PRN ORAL Mild Pain/Temp > 100.5 05/06/16 21:15 06/05/16 21:14 Clonazepam (KlonoPIN) 2 mg Q12HR ORAL 05/07/16 09:00 05/14/16 08:59 05/10/16 09:08 Dextrose (Dextrose 50%) STAT PRN IV Hypoglycemia 05/06/16 21:15 06/05/16 21:14 Heparin Sodium/ Sodium Chloride (Heparin 2000 units/Ns 1000ml premix) 2,000 unit ONCE INJ 05/10/16 06:00 05/10/16 23:59 Lidocaine HCl (Xylocaine 1% 30ml) 30 ml ONCE INJ 05/10/16 06:00 05/10/16 23:59 Ondansetron HCl (Zofran) 4 mg EVERY 4 HOURS PRN IVP Nausea & Vomiting 05/06/16 21:15 06/05/16 21:14 Oxycodone HCl (OxyCONTIN) 30 mg Q12HR ORAL 05/06/16 21:15 05/13/16 21:14 05/10/16 09:09 Oxycodone HCl (Roxicodone) 10 mg Q4H PRN ORAL Breakthrough Pain 05/06/16 21:15 05/13/16 21:14 05/10/16 13:06 Sodium Bicarbonate (Sodium Bicarbonate) 50 ml ONCE IV 05/10/16 06:00 05/10/16 23:59 Vancomycin HCl (Vanco rx to dose) 1 ea DAILY PRN MISC Per rx protocol 05/06/16 21:15 06/05/16 21:14 Vancomycin HCl/ Dextrose (Vancomycin/D5W 250ml) 250 ml @ 166.667 mls/hr Q12H IVPB 05/07/16 07:00 05/12/16 06:59 05/10/16 06:08 SAMUEL AMARO May 10, 2016 14:33
[2016-05-10 16:08] VITALS: BP 126/57
--- NOTE | 2016-05-10 18:38 | Internal Med Progress Note ---
Subjective Date of Service: May 10, 2016 Physician Name Jose Camp Attending Physician Cecilio Zimmerman MD Current Medications Medications (Trade) Dose Ordered Sig/Carmine Route PRN Reason Start Time Stop Time Status Last Admin Dose Admin Acetaminophen (Tylenol) 650 mg Q4H PRN ORAL Mild Pain/Temp > 100.5 05/06/16 21:15 06/05/16 21:14 Clonazepam (KlonoPIN) 2 mg Q12HR ORAL 05/07/16 09:00 05/14/16 08:59 05/10/16 09:08 Dextrose (Dextrose 50%) STAT PRN IV Hypoglycemia 05/06/16 21:15 06/05/16 21:14 Heparin Sodium/ Sodium Chloride 2000 unit 2,000 unit ONCE INJ 05/10/16 06:00 05/10/16 23:59 Lidocaine HCl (Xylocaine 1% 30ml) 30 ml ONCE INJ 05/10/16 06:00 05/10/16 23:59 Ondansetron HCl (Zofran) 4 mg EVERY 4 HOURS PRN IVP Nausea & Vomiting 05/06/16 21:15 06/05/16 21:14 Oxycodone HCl (OxyCONTIN) 30 mg Q12HR ORAL 05/06/16 21:15 05/13/16 21:14 05/10/16 09:09 Oxycodone HCl (Roxicodone) 10 mg Q4H PRN ORAL Breakthrough Pain 05/06/16 21:15 05/13/16 21:14 05/10/16 13:06 Sodium Bicarbonate (Sodium Bicarbonate) 50 ml ONCE IV 05/10/16 06:00 05/10/16 23:59 Vancomycin HCl (Vanco rx to dose) 1 ea DAILY PRN MISC Per rx protocol 05/10/16 14:45 06/09/16 23:59 Vancomycin HCl/ Dextrose (Vancomycin/D5W 250ml) 250 ml @ 166.667 mls/hr Q12H IVPB 05/10/16 19:00 05/15/16 18:59 Allergies: Coded Allergies: PENICILLINS (Unverified Allergy, Severe, 09/23/15) 09/23/15 tolerates cefepime ROS Limited/Unobtainable: No Constitutional: Reports: no symptoms HEENT: Reports: no symptoms Cardiovascular: Reports: no symptoms Respiratory: Reports: no symptoms Gastrointestinal/Abdominal: Reports: no symptoms Genitourinary: Reports: no symptoms Neurologic/Psychiatric: Reports: no symptoms Subjective Cover for Int Med-Dr Zimmerman. Not accepted to [facility]. S/P incision and drainage left arm abscess 05/09/16. Objective Last Vital Signs Date Time Temp Pulse Resp B/P Pulse Ox O2 Delivery O2 Flow Rate FiO2 05/10/16 16:08 97.3 86 25 126/57 98 Room Air Laboratory Tests Test 05/10/16 09:15 White Blood Count 7.4 K/UL (4.8-10.8) Red Blood Count 4.70 M/UL (4.70-6.10) Hemoglobin 12.1 G/DL (14.2-18.0) L Hematocrit 38.5 % (42.0-52.0) L Mean Corpuscular Volume 82 FL (80-99) Mean Corpuscular Hemoglobin 25.7 PG (27.0-31.0) L Mean Corpuscular Hemoglobin Concent 31.4 G/DL (32.0-36.0) L Red Cell Distribution Width 16.4 % (11.6-14.8) H Platelet Count 407 K/UL (150-450) Mean Platelet Volume 6.5 FL (6.5-10.1) Neutrophils (%) (Auto) 48.3 % (45.0-75.0) Lymphocytes (%) (Auto) 35.5 % (20.0-45.0) Monocytes (%) (Auto) 7.5 % (1.0-10.0) Eosinophils (%) (Auto) 6.6 % (0.0-3.0) H Basophils (%) (Auto) 2.2 % (0.0-2.0) H Sodium Level 137 mEQ/L (135-145) Potassium Level 4.1 mEQ/L (3.4-4.9) Chloride Level 98 mEQ/L (98-107) Carbon Dioxide Level 27 mEQ/L (20-30) Anion Gap 12 (5-15) Blood Urea Nitrogen 15 mg/dL (7-23) Creatinine 1.0 mg/dL (0.7-1.2) Estimat Glomerular Filtration Rate > 60 mL/min (>60) Glucose Level 110 mg/dL (74-106) H Calcium Level 9.2 mg/dL (8.6-10.2) Microbiology Date/Time Source Procedure Growth Status 05/09/16 08:05 Wound Gram Stain - Final Resulted 05/09/16 08:05 Wound Wound Culture - Preliminary Resulted Intake and Output 05/09/16 05/10/16 19:00 07:00 Intake Total 840 ml 1250 ml Output Total 1900 ml Balance 840 ml -650 ml Intake Oral 840 ml 1000 ml IV Total 250 ml Output Urine Total 1900 ml # Voids 2 Objective General Appearance: WD/WN, no apparent distress, alert EENT: PERRL/EOMI, normal ENT inspection Neck: non-tender, normal alignment, supple, normal inspection Cardiovascular: normal peripheral pulses, normal rate, regular rhythm, no gallop/murmur, no JVD Respiratory/Chest: chest wall non-tender, lungs clear, normal breath sounds, no respiratory distress, no accessory muscle use Abdomen: normal bowel sounds, non tender, soft, no organomegaly, no mass Extremities: other - right arm abscesses 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 See ID consult and surgery consult. S/P incision and drainage 05/09/16. Cont vanco and D/C levaquin per ID (3) Opiate dependence, continuous Assessment & Plan: Cont oxycodone prn and oxycontin routine. Not accepted to [facility] @ [facility] hosp @ [place]; await sober living (eg. [facility] [place] [facility] vs the [place], etc) (4) CHF (congestive heart failure) (5) Hypertension (6) Hypercholesteremia Assessment/Plan Discharge planning: Sober living on 05/11/16. Will need to change to oral antibiotic prior to discharge. JOSE CAMP May 10, 2016 18:38
[2016-05-10 20:00] VITALS: BP 108/58
[2016-05-10 23:58] VITALS: BP 110/65
[2016-05-11 04:00] VITALS: BP 108/69
[2016-05-11] MEDS: oxyCODONE 5mg IR tab ORAL PRN ×3 (05:59→18:52)
[2016-05-11 08:00] VITALS: BP 133/71
[2016-05-11] MEDS: oxyCONTIN 10mg tab ORAL SCH ×2 (09:20→20:40)
--- NOTE | 2016-05-11 10:42 | General Surgery Progress Note ---
General Surgery-Progress Note Subjective Procedure Performed I&D left upper extremity abscess Symptoms: improved Additional Comments patient seen and examined at bedside. doing well. pain improved. no issues. no complaints. Objective Last 24 Hour Vital Signs Date Time Temp Pulse Resp B/P Pulse Ox O2 Delivery O2 Flow Rate FiO2 05/11/16 08:00 97.3 88 18 133/71 99 05/11/16 04:00 97.4 83 18 108/69 99 Room Air 05/10/16 23:58 96.6 86 18 110/65 98 Room Air 05/10/16 20:00 98.1 98 21 108/58 93 Room Air 05/10/16 16:08 97.3 86 25 126/57 98 Room Air I&O Intake and Output 05/10/16 05/11/16 19:00 07:00 Intake Total 480 ml 1657 ml Output Total 1000 ml 1600 ml Balance -520 ml 57 ml Intake Oral 480 ml 1240 ml IV Total 417 ml Output Urine Total 1000 ml 1600 ml # Voids 3 # Bowel Movements 1 1 Dressing: dry Wound: clean Drains: none Cardiovascular: RSR Respiratory: clear Abdomen: soft, non-tender Extremities: other - wounds improved. no erythema, edema improved. Assessment Post-op Diagnosis 56 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 also has multiple chronic wounds from prior I&D and infections. states he has had these for a while and attempts care of them himself in the streets sometimes. Plan Additional Comments all wounds evaluated and new dressings applied dressings changes BID continue Abx as per primary team will continue to follow with you. Olegario Suero MD May 11, 2016 10:42
[2016-05-11 12:00] VITALS: BP 139/85
[2016-05-11 13:42] LABS: EOSINOPHILS % (AUTO) 6.9 % (0.0-3.0); LYMPHOCYTES % (AUTO) 39.6 % (20.0-45.0); MEAN CORPUSCULAR HEMOGLOBIN 26.1 PG (27.0-31.0); MEAN CORPUSCULAR HGB CONC 32.6 G/DL (32.0-36.0); MEAN CORPUSCULAR VOLUME 80 FL (80-99); NEUTROPHILS % (AUTO) 45.6 % (45.0-75.0); PLATELET COUNT 406 K/UL (150-450); RED BLOOD COUNT 4.71 M/UL (4.70-6.10); RED CELL DISTRIBUTION WIDTH 17.1 % (11.6-14.8); WHITE BLOOD COUNT 6.8 K/UL (4.8-10.8)
[2016-05-11 13:54] LABS: ANION GAP 12 (5-15); CALCIUM 8.9 mg/dL (8.6-10.2); CARBON DIOXIDE 28 mEQ/L (20-30); CHLORIDE 98 mEQ/L (98-107); CREATININE 1.1 mg/dL (0.7-1.2); GLOMERULAR FILTRATION RATE > 60 mL/min (>60); HEMOLYSIS 4; POTASSIUM 4.9 mEQ/L (3.4-4.9); SODIUM 138 mEQ/L (135-145)
[2016-05-11 16:00] VITALS: BP 110/58
--- NOTE | 2016-05-11 17:29 | Internal Med Progress Note ---
Subjective Date of Service: May 11, 2016 Physician Name Kadie Camp Attending Physician Cecilio Zimmerman MD Current Medications Medications (Trade) Dose Ordered Sig/Carmine Route PRN Reason Start Time Stop Time Status Last Admin Dose Admin Acetaminophen 650 mg 650 mg Q4H PRN ORAL Mild Pain/Temp > 100.5 05/06/16 21:15 06/05/16 21:14 Clonazepam (KlonoPIN) 2 mg Q12HR ORAL 05/07/16 09:00 05/14/16 08:59 05/11/16 09:20 Dextrose (Dextrose 50%) STAT PRN IV Hypoglycemia 05/06/16 21:15 06/05/16 21:14 Ondansetron HCl (Zofran) 4 mg EVERY 4 HOURS PRN IVP Nausea & Vomiting 05/06/16 21:15 06/05/16 21:14 Oxycodone HCl (OxyCONTIN) 30 mg Q12HR ORAL 05/06/16 21:15 05/13/16 21:14 05/11/16 09:20 Oxycodone HCl (Roxicodone) 10 mg Q4H PRN ORAL Breakthrough Pain 05/06/16 21:15 05/13/16 21:14 05/11/16 13:36 Vancomycin HCl (Vanco rx to dose) 1 ea DAILY PRN MISC Per rx protocol 05/10/16 14:45 06/09/16 23:59 Vancomycin HCl/ Dextrose (Vancomycin/D5W 250ml) 250 ml @ 166.667 mls/hr Q12H IVPB 05/10/16 19:00 05/15/16 18:59 05/11/16 06:00 Allergies: Coded Allergies: PENICILLINS (Unverified Allergy, Severe, 09/23/15) 09/23/15 tolerates cefepime ROS Limited/Unobtainable: No Constitutional: Reports: no symptoms HEENT: Reports: no symptoms Cardiovascular: Reports: no symptoms Respiratory: Reports: no symptoms Gastrointestinal/Abdominal: Reports: no symptoms Genitourinary: Reports: no symptoms Neurologic/Psychiatric: Reports: no symptoms Subjective Cover for Int [facility]-Dr Zimmerman. Not accepted to [facility]; await auth from insurance for sober living fac. S/P incision and drainage left arm abscess 05/09/16. Objective Last Vital Signs Date Time Temp Pulse Resp B/P Pulse Ox O2 Delivery O2 Flow Rate FiO2 05/11/16 16:00 98.4 98 18 110/58 98 Room Air Laboratory Tests Test 05/11/16 13:00 White Blood Count 6.8 K/UL (4.8-10.8) Red Blood Count 4.71 M/UL (4.70-6.10) Hemoglobin 12.3 G/DL (14.2-18.0) L Hematocrit 37.6 % (42.0-52.0) L Mean Corpuscular Volume 80 FL (80-99) Mean Corpuscular Hemoglobin 26.1 PG (27.0-31.0) L Mean Corpuscular Hemoglobin Concent 32.6 G/DL (32.0-36.0) Red Cell Distribution Width 17.1 % (11.6-14.8) H Platelet Count 406 K/UL (150-450) Mean Platelet Volume 7.0 FL (6.5-10.1) Neutrophils (%) (Auto) 45.6 % (45.0-75.0) Lymphocytes (%) (Auto) 39.6 % (20.0-45.0) Monocytes (%) (Auto) 6.0 % (1.0-10.0) Eosinophils (%) (Auto) 6.9 % (0.0-3.0) H Basophils (%) (Auto) 2.0 % (0.0-2.0) Sodium Level 138 mEQ/L (135-145) Potassium Level 4.9 mEQ/L (3.4-4.9) Chloride Level 98 mEQ/L (98-107) Carbon Dioxide Level 28 mEQ/L (20-30) Anion Gap 12 (5-15) Blood Urea Nitrogen 17 mg/dL (7-23) Creatinine 1.1 mg/dL (0.7-1.2) Estimat Glomerular Filtration Rate > 60 mL/min (>60) Glucose Level 107 mg/dL (74-106) H Calcium Level 8.9 mg/dL (8.6-10.2) Microbiology Date/Time Source Procedure Growth Status 05/09/16 08:05 Wound Gram Stain - Final Resulted 05/09/16 08:05 Wound Culture - Preliminary Staphylococcus Aureus Resulted Intake and Output 05/10/16 05/11/16 19:00 07:00 Intake Total 480 ml 1657 ml Output Total 1000 ml 1600 ml Balance -520 ml 57 ml Intake Oral 480 ml 1240 ml IV Total 417 ml Output Urine Total 1000 ml 1600 ml # Voids 3 # Bowel Movements 1 1 Objective General Appearance: WD/WN, no apparent distress, alert EENT: PERRL/EOMI, normal ENT inspection Neck: non-tender, normal alignment, supple, normal inspection Cardiovascular: normal peripheral pulses, normal rate, regular rhythm, no gallop/murmur, no JVD Respiratory/Chest: chest wall non-tender, lungs clear, normal breath sounds, no respiratory distress, no accessory muscle use Abdomen: normal bowel sounds, non tender, soft, no organomegaly, no mass Extremities: other - right arm abscesses Neurologic: 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 S/P incision and drainage 05/09/16. Cont vanco and D/C levaquin per ID (3) Opiate dependence, continuous Assessment & Plan: Cont oxycodone prn and oxycontin routine. Not accepted to [facility] @ [facility] hosp @ [place]; await sober living auth from insurance (4) CHF (congestive heart failure) (5) Hypertension (6) Hypercholesteremia Status: progressing Assessment/Plan Discharge planning: Sober living on 05/12/16. D/C on oral bactrim per ID KADIE CAMP May 11, 2016 17:29
[2016-05-11 20:00] VITALS: BP 117/58
[2016-05-12 04:00] VITALS: BP 131/72
[2016-05-12] MEDS: oxyCODONE 5mg IR tab ORAL PRN (06:08)
[2016-05-12 08:00] VITALS: BP 102/62
[2016-05-12] MEDS: oxyCONTIN 10mg tab ORAL SCH ×2 (08:59→20:13)
[2016-05-12 12:00] VITALS: BP 94/58
--- NOTE | 2016-05-12 12:44 | Infectious Diseases Prog Note ---
Assessment/Plan Assessment/Plan A) 1) mrsa bilateral arm abscess/cellulitis - s/p I/D, wounds improving, surgery following/notes reviewed 2) hep c, cps, cpm, opiate dependancy, dm, gerd, htn, anemia, ? neuro dx, leukopenia, chf hx, hypercholesteremia, hx renal failure 3) allergies - pcn, fh-nc, mar noted, sh-past smoker, mar noted 4) notes and records reviewed 5) d/w RN and pt P) 1) vancomycin for now 2) po bactrim upon discharge 3) check labs 4) continue other treatment per primary, wound care per surgery 5) orders entered and noted 6) d/w pharmacy 7) d/w Dr. Savage Subjective Constitutional: Denies: fever HEENT: Denies: congestion Respiratory: Denies: shortness of breath Cardiovascular: Denies: chest pain Gastrointestinal/Abdominal: Denies: diarrhea, nausea, vomiting Neurologic: Denies: headache Psychiatric: Denies: depression Skin: Denies: rash Hematologic: Denies: bleeding Musculoskeletal: Denies: pain Allergies: Coded Allergies: PENICILLINS (Unverified Allergy, Severe, 09/23/15) 09/23/15 tolerates cefepime Objective Vital Signs Last 24 Hour Vital Signs Date Time Temp Pulse Resp B/P Pulse Ox O2 Delivery O2 Flow Rate FiO2 05/12/16 08:00 98.4 89 18 102/62 96 Room Air 05/12/16 04:00 98.5 89 18 131/72 99 Room Air 05/11/16 20:00 98.1 96 18 117/58 98 Room Air 05/11/16 16:00 98.4 98 18 110/58 98 Room Air Height (Feet): 5 Height (Inches): 11.00 Weight (Pounds): 180 General Appearance: no acute distress HEENT: normocephalic, atraumatic, anicteric, mucous membranes moist, PERRL Respiratory/Chest: lungs clear, normal breath sounds, no respiratory distress, no accessory muscle use Cardiovascular: normal rate, regular rhythm, no gallop/murmur Abdomen: normal bowel sounds, soft, non tender, no organomegaly, non distended Genitourinary: other - no preston, no cva pain Extremities: no cyanosis Skin: no rash, other - wounds 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, alert, oriented x 3, responsive Lymphatic: no neck adenopathy Musculoskeletal: no effusion Objective chest x-ray - negative Microbiology Date/Time Source Procedure Growth Status 05/06/16 17:50 Blood Blood Culture - Preliminary NO GROWTH AFTER 4 DAYS Resulted 05/09/16 08:05 Wound Gram Stain - Final Complete 05/09/16 08:05 Wound Culture - Final Staphylococcus Aureus - Mrsa Complete 05/06/16 19:13 Hand Right Gram Stain - Final Complete 05/06/16 19:13 Wound Culture - Final Staphylococcus Aureus - Mrsa Complete Laboratory Tests Test 05/11/16 13:00 White Blood Count 6.8 K/UL (4.8-10.8) Red Blood Count 4.71 M/UL (4.70-6.10) Hemoglobin 12.3 G/DL (14.2-18.0) L Hematocrit 37.6 % (42.0-52.0) L Mean Corpuscular Volume 80 FL (80-99) Mean Corpuscular Hemoglobin 26.1 PG (27.0-31.0) L Mean Corpuscular Hemoglobin Concent 32.6 G/DL (32.0-36.0) Red Cell Distribution Width 17.1 % (11.6-14.8) H Platelet Count 406 K/UL (150-450) Mean Platelet Volume 7.0 FL (6.5-10.1) Neutrophils (%) (Auto) 45.6 % (45.0-75.0) Lymphocytes (%) (Auto) 39.6 % (20.0-45.0) Monocytes (%) (Auto) 6.0 % (1.0-10.0) Eosinophils (%) (Auto) 6.9 % (0.0-3.0) H Basophils (%) (Auto) 2.0 % (0.0-2.0) Sodium Level 138 mEQ/L (135-145) Potassium Level 4.9 mEQ/L (3.4-4.9) Chloride Level 98 mEQ/L (98-107) Carbon Dioxide Level 28 mEQ/L (20-30) Anion Gap 12 (5-15) Blood Urea Nitrogen 17 mg/dL (7-23) Creatinine 1.1 mg/dL (0.7-1.2) Estimat Glomerular Filtration Rate > 60 mL/min (>60) Glucose Level 107 mg/dL (74-106) H Calcium Level 8.9 mg/dL (8.6-10.2) Current Medications Medications (Trade) Dose Ordered Sig/Carmine Route PRN Reason Start Time Stop Time Status Last Admin Dose Admin Acetaminophen 650 mg 650 mg Q4H PRN ORAL Mild Pain/Temp > 100.5 05/06/16 21:15 06/05/16 21:14 Clonazepam (KlonoPIN) 2 mg Q12HR ORAL 05/07/16 09:00 05/14/16 08:59 05/12/16 08:59 Dextrose (Dextrose 50%) STAT PRN IV Hypoglycemia 05/06/16 21:15 06/05/16 21:14 Ondansetron HCl (Zofran) 4 mg EVERY 4 HOURS PRN IVP Nausea & Vomiting 05/06/16 21:15 06/05/16 21:14 Oxycodone HCl (OxyCONTIN) 30 mg Q12HR ORAL 05/06/16 21:15 05/13/16 21:14 05/12/16 08:59 Oxycodone HCl (Roxicodone) 10 mg Q4H PRN ORAL Breakthrough Pain 05/06/16 21:15 05/13/16 21:14 05/12/16 06:08 Vancomycin HCl (Vanco rx to dose) 1 ea DAILY PRN MISC Per rx protocol 05/10/16 14:45 06/09/16 23:59 Vancomycin HCl/ Dextrose (Vancomycin/D5W 250ml) 250 ml @ 166.667 mls/hr Q12H IVPB 05/10/16 19:00 05/15/16 18:59 05/12/16 06:03 SAMUEL AMARO May 12, 2016 12:44
--- NOTE | 2016-05-12 14:48 | General Progress Note ---
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 Continue antibiotics, elevation and hopefully will go straight to REHAB from the hospital. RAMIRO DUKES May 12, 2016 14:48
--- NOTE | 2016-05-12 15:59 | Internal Med Progress Note ---
Subjective Date of Service: May 12, 2016 Physician Name Kadie Camp Attending Physician Cecilio Zimmerman MD Current Medications Medications (Trade) Dose Ordered Sig/Carmine Route PRN Reason Start Time Stop Time Status Last Admin Dose Admin Acetaminophen 650 mg 650 mg Q4H PRN ORAL Mild Pain/Temp > 100.5 05/06/16 21:15 06/05/16 21:14 Clonazepam (KlonoPIN) 2 mg Q12HR ORAL 05/07/16 09:00 05/14/16 08:59 05/12/16 08:59 Dextrose (Dextrose 50%) STAT PRN IV Hypoglycemia 05/06/16 21:15 06/05/16 21:14 Ondansetron HCl (Zofran) 4 mg EVERY 4 HOURS PRN IVP Nausea & Vomiting 05/06/16 21:15 06/05/16 21:14 Oxycodone HCl (OxyCONTIN) 30 mg Q12HR ORAL 05/06/16 21:15 05/13/16 21:14 05/12/16 08:59 Oxycodone HCl (Roxicodone) 10 mg Q4H PRN ORAL Breakthrough Pain 05/06/16 21:15 05/13/16 21:14 05/12/16 06:08 Vancomycin HCl (Vanco rx to dose) 1 ea DAILY PRN MISC Per rx protocol 05/10/16 14:45 06/09/16 23:59 Vancomycin HCl/ Dextrose (Vancomycin/D5W 250ml) 250 ml @ 166.667 mls/hr Q12H IVPB 05/10/16 19:00 05/15/16 18:59 05/12/16 06:03 Allergies: Coded Allergies: PENICILLINS (Unverified Allergy, Severe, 09/23/15) 09/23/15 tolerates cefepime ROS Limited/Unobtainable: No Constitutional: Reports: no symptoms HEENT: Reports: no symptoms Cardiovascular: Reports: no symptoms Respiratory: Reports: no symptoms Gastrointestinal/Abdominal: Reports: no symptoms Genitourinary: Reports: no symptoms Neurologic/Psychiatric: Reports: no symptoms Subjective 56 YO M admitted for abscess bilat arms and opiate dependence. Cover for [facility]-Dr Zimmerman. Not accepted to [facility]; await auth from insurance for sober living fac. S/P incision and drainage left arm abscess . Objective Last Vital Signs Date Time Temp Pulse Resp B/P Pulse Ox O2 Delivery O2 Flow Rate FiO2 05/12/16 12:00 95.5 90 18 94/58 97 Room Air Intake and Output 05/11/16 05/12/16 19:00 07:00 Intake Total 723 ml 1010 ml Output Total 630 ml 2100 ml Balance 93 ml -1090 ml Intake Oral 640 ml 760 ml IV Total 83 ml 250 ml Output Urine Total 630 ml 2100 ml # Voids 3 # Bowel Movements 2 Objective General Appearance: WD/WN, no apparent distress, alert EENT: PERRL/EOMI, normal ENT inspection Neck: non-tender, normal alignment, supple, normal inspection Cardiovascular: normal peripheral pulses, normal rate, regular rhythm, no gallop/murmur, no JVD Respiratory/Chest: chest wall non-tender, lungs clear, normal breath sounds, no respiratory distress, no accessory muscle use Abdomen: normal bowel sounds, non tender, soft, no organomegaly, no mass Extremities: other - right arm abscesses Neurologic: 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 S/P incision and drainage 05/09/16. Cont vanco and D/C levaquin per ID (3) Opiate dependence, continuous Assessment & Plan: Cont oxycodone prn and oxycontin routine. Not accepted to [facility] @ [facility] hosp @ [place]; await sober living auth from insurance (4) CHF (congestive heart failure) (5) Hypertension (6) Hypercholesteremia Status: not improved Assessment/Plan Discharge planning: Sober living on 05/12/16. D/C on oral bactrim per ID KADIE CAMP May 12, 2016 15:59
[2016-05-12 16:00] VITALS: BP 114/68
[2016-05-12] MEDS ORDERED: NS 275ml ONE (17:26)
[2016-05-12] MEDS ORDERED: Tubing IV Secondary IV ONE (17:26)
[2016-05-12 20:05] VITALS: BP 106/68
[2016-05-13] VITALS: BP 108/72
[2016-05-13] MEDS: oxyCODONE 5mg IR tab ORAL PRN ×3 (00:54→17:58)
[2016-05-13 04:00] VITALS: BP 102/65
[2016-05-13] MEDS ORDERED: Vancomycin 1gm inj IVPB ONE (06:38)
[2016-05-13 07:47] LABS: BASOPHILS % (AUTO) 2.4 % (0.0-2.0); EOSINOPHILS % (AUTO) 7.2 % (0.0-3.0); LYMPHOCYTES % (AUTO) 45.8 % (20.0-45.0); MEAN CORPUSCULAR HEMOGLOBIN 24.8 PG (27.0-31.0); MEAN CORPUSCULAR HGB CONC 30.3 G/DL (32.0-36.0); MEAN CORPUSCULAR VOLUME 82 FL (80-99); MEAN PLATELET VOLUME 6.2 FL (6.5-10.1); MONOCYTES % (AUTO) 7.7 % (1.0-10.0); NEUTROPHILS % (AUTO) 36.9 % (45.0-75.0); PLATELET COUNT 364 K/UL (150-450); RED BLOOD COUNT 4.82 M/UL (4.70-6.10); RED CELL DISTRIBUTION WIDTH 16.6 % (11.6-14.8); WHITE BLOOD COUNT 6.1 K/UL (4.8-10.8)
[2016-05-13 08:00] VITALS: BP 102/49
[2016-05-13 08:13] LABS: ANION GAP 13 (5-15); CALCIUM 9.4 mg/dL (8.6-10.2); CARBON DIOXIDE 28 mEQ/L (20-30); CHLORIDE 99 mEQ/L (98-107); CREATININE 0.8 mg/dL (0.7-1.2); GLOMERULAR FILTRATION RATE > 60 mL/min (>60); HEMOLYSIS 0; POTASSIUM 4.5 mEQ/L (3.4-4.9); SODIUM 140 mEQ/L (135-145)
[2016-05-13] MEDS: oxyCONTIN 10mg tab ORAL SCH ×2 (08:58→21:03)
--- NOTE | 2016-05-13 10:31 | Cardiology Report ---
APPROVED REPORT EKG Measurement Heart [id number] Normal sinus rhythm Left axis deviation Septal infarct, age undetermined Abnormal ECG
--- NOTE | 2016-05-13 11:44 | Infectious Diseases Prog Note ---
Assessment/Plan Assessment/Plan A) 1) mrsa bilateral arm abscess/cellulitis - s/p I/D, wounds improving, surgery following/notes reviewed 2) hep c, cps, cpm, opiate dependancy, dm, gerd, htn, anemia, ? neuro dx, leukopenia, chf hx, hypercholesteremia, hx renal failure 3) allergies - pcn, fh-nc, mar noted, sh-past smoker, mar noted 4) notes and records reviewed 5) d/w RN and pt P) 1) vancomycin for now 2) po bactrim upon discharge 3) check labs 4) continue other treatment per primary, wound care per surgery 5) orders entered and noted 6) d/w pharmacy 7) d/w Dr. Savage Subjective Constitutional: Denies: fever HEENT: Denies: congestion Respiratory: Denies: shortness of breath Cardiovascular: Denies: chest pain Gastrointestinal/Abdominal: Denies: diarrhea, nausea, vomiting Genitourinary: Denies: dysuria Neurologic: Denies: headache Psychiatric: Denies: depression Skin: Denies: rash Hematologic: Denies: bleeding Musculoskeletal: Denies: pain Allergies: Coded Allergies: PENICILLINS (Unverified Allergy, Severe, 09/23/15) 09/23/15 tolerates cefepime Objective Vital Signs Last 24 Hour Vital Signs Date Time Temp Pulse Resp B/P Pulse Ox O2 Delivery O2 Flow Rate FiO2 05/13/16 08:00 97.9 85 18 102/49 98 Room Air 05/13/16 04:00 98.2 79 16 102/65 96 Room Air 05/13/16 00:00 98.1 87 18 108/72 98 Room Air 05/12/16 20:05 98.4 94 20 106/68 98 Room Air 05/12/16 16:00 97.7 87 20 114/68 99 Room Air 05/12/16 12:00 95.5 90 18 94/58 97 Room Air Height (Feet): 5 Height (Inches): 11.00 Weight (Pounds): 180 General Appearance: no acute distress HEENT: normocephalic, atraumatic, anicteric, mucous membranes moist, PERRL, EOMI, pharynx normal, supple, no JVD Respiratory/Chest: lungs clear, normal breath sounds, no respiratory distress, no accessory muscle use Cardiovascular: normal rate, regular rhythm, no gallop/murmur, no JVD Abdomen: normal bowel sounds, soft, non tender, no organomegaly, non distended Genitourinary: other - no prseton Extremities: no cyanosis Skin: no rash, other - 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, 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/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: 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 normal, alert, oriented x 3, responsive Lymphatic: no neck adenopathy Musculoskeletal: no effusion Objective chest x-ray - negative Microbiology Date/Time Source Procedure Growth Status 05/06/16 17:50 Blood Blood Culture - Final NO GROWTH AFTER 5 DAYS Complete 05/09/16 08:05 Wound Gram Stain - Final Complete 05/09/16 08:05 Wound Culture - Final Staphylococcus Aureus - Mrsa Complete 05/06/16 19:13 Hand Right Gram Stain - Final Complete 05/06/16 19:13 Wound Culture - Final Staphylococcus Aureus - Mrsa Complete Laboratory Tests Test 05/13/16 05:20 White Blood Count 6.1 K/UL (4.8-10.8) Red Blood Count 4.82 M/UL (4.70-6.10) Hemoglobin 12.0 G/DL (14.2-18.0) L Hematocrit 39.6 % (42.0-52.0) L Mean Corpuscular Volume 82 FL (80-99) Mean Corpuscular Hemoglobin 24.8 PG (27.0-31.0) L Mean Corpuscular Hemoglobin Concent 30.3 G/DL (32.0-36.0) L Red Cell Distribution Width 16.6 % (11.6-14.8) H Platelet Count 364 K/UL (150-450) Mean Platelet Volume 6.2 FL (6.5-10.1) L Neutrophils (%) (Auto) 36.9 % (45.0-75.0) L Lymphocytes (%) (Auto) 45.8 % (20.0-45.0) H Monocytes (%) (Auto) 7.7 % (1.0-10.0) Eosinophils (%) (Auto) 7.2 % (0.0-3.0) H Basophils (%) (Auto) 2.4 % (0.0-2.0) H Sodium Level 140 mEQ/L (135-145) Potassium Level 4.5 mEQ/L (3.4-4.9) Chloride Level 99 mEQ/L (98-107) Carbon Dioxide Level 28 mEQ/L (20-30) Anion Gap 13 (5-15) Blood Urea Nitrogen 18 mg/dL (7-23) Creatinine 0.8 mg/dL (0.7-1.2) Estimat Glomerular Filtration Rate > 60 mL/min (>60) Glucose Level 88 mg/dL (74-106) Calcium Level 9.4 mg/dL (8.6-10.2) Current Medications Medications (Trade) Dose Ordered Sig/Carmine Route PRN Reason Start Time Stop Time Status Last Admin Dose Admin Acetaminophen 650 mg 650 mg Q4H PRN ORAL Mild Pain/Temp > 100.5 05/06/16 21:15 06/05/16 21:14 Clonazepam (KlonoPIN) 2 mg Q12HR ORAL 05/07/16 09:00 05/14/16 08:59 05/13/16 08:59 Dextrose (Dextrose 50%) STAT PRN IV Hypoglycemia 05/06/16 21:15 06/05/16 21:14 Ondansetron HCl (Zofran) 4 mg EVERY 4 HOURS PRN IVP Nausea & Vomiting 05/06/16 21:15 06/05/16 21:14 Oxycodone HCl (OxyCONTIN) 30 mg Q12HR ORAL 05/06/16 21:15 05/13/16 21:14 05/13/16 08:58 Oxycodone HCl (Roxicodone) 10 mg Q4H PRN ORAL Breakthrough Pain 05/06/16 21:15 05/13/16 21:14 05/13/16 05:54 Vancomycin HCl (Vanco rx to dose) 1 ea DAILY PRN MISC Per rx protocol 05/10/16 14:45 06/09/16 23:59 Vancomycin HCl/ Dextrose (Vancomycin/D5W 250ml) 250 ml @ 166.667 mls/hr Q12H IVPB 05/10/16 19:00 05/15/16 18:59 05/13/16 07:02 SAMUEL AMARO May 13, 2016 11:43
[2016-05-13 12:00] VITALS: BP 91/54
--- NOTE | 2016-05-13 15:14 | Wound Nurse Progress Note ---
Wound RN Progress Note Wound Consult Assessed this Pt. Pt came in with non pressure related open wounds on both arms. Draining with serosanguineous drainage. Wounds appears to be abscess that are open on both arms. wound treatment order noted to cleanse with saline, application of adaptic and dry drg by the nurses on the floor. will cont with treatment order and cont to monitor for s/s of infection. MISSAEL IBANEZ RN May 13, 2016 15:14
[2016-05-13 16:00] VITALS: BP 93/66
--- NOTE | 2016-05-13 19:01 | Internal Med Progress Note ---
Subjective Date of Service: May 13, 2016 Physician Name Kadie Camp Attending Physician Cecilio Zimmerman MD Current Medications Medications (Trade) Dose Ordered Sig/Carmine Route PRN Reason Start Time Stop Time Status Last Admin Dose Admin Acetaminophen (Tylenol) 650 mg Q4H PRN ORAL Mild Pain/Temp > 100.5 05/06/16 21:15 06/05/16 21:14 Clonazepam (KlonoPIN) 2 mg Q12HR ORAL 05/07/16 09:00 05/14/16 08:59 05/13/16 08:59 Dextrose (Dextrose 50%) STAT PRN IV Hypoglycemia 05/06/16 21:15 06/05/16 21:14 Ondansetron HCl (Zofran) 4 mg EVERY 4 HOURS PRN IVP Nausea & Vomiting 05/06/16 21:15 06/05/16 21:14 Oxycodone HCl (OxyCONTIN) 30 mg Q12HR ORAL 05/06/16 21:15 05/13/16 21:14 05/13/16 08:58 Oxycodone HCl (Roxicodone) 10 mg Q4H PRN ORAL Breakthrough Pain 05/06/16 21:15 05/13/16 21:14 05/13/16 17:58 Vancomycin HCl 1 ea 1 ea DAILY PRN MISC Per rx protocol 05/10/16 14:45 06/09/16 23:59 Vancomycin HCl/ Dextrose (Vancomycin/D5W 250ml) 250 ml @ 166.667 mls/hr Q12H IVPB 05/13/16 19:00 05/18/16 18:59 Allergies: Coded Allergies: PENICILLINS (Unverified Allergy, Severe, 09/23/15) 09/23/15 tolerates cefepime ROS Limited/Unobtainable: No Constitutional: Reports: no symptoms HEENT: Reports: no symptoms Cardiovascular: Reports: no symptoms Respiratory: Reports: no symptoms Gastrointestinal/Abdominal: Reports: no symptoms Genitourinary: Reports: no symptoms Neurologic/Psychiatric: Reports: no symptoms Subjective 56 YO M admitted for abscess bilat arms and opiate dependence. Cover for Int Med-Dr Zimmerman. Not accepted to [facility]; await auth from insurance for sober living fac. S/P incision and drainage left arm abscess . Objective Last Vital Signs Date Time Temp Pulse Resp B/P Pulse Ox O2 Delivery O2 Flow Rate FiO2 05/13/16 16:00 97.9 81 18 93/66 98 Room Air Laboratory Tests Test 05/13/16 05:20 White Blood Count 6.1 K/UL (4.8-10.8) Red Blood Count 4.82 M/UL (4.70-6.10) Hemoglobin 12.0 G/DL (14.2-18.0) L Hematocrit 39.6 % (42.0-52.0) L Mean Corpuscular Volume 82 FL (80-99) Mean Corpuscular Hemoglobin 24.8 PG (27.0-31.0) L Mean Corpuscular Hemoglobin Concent 30.3 G/DL (32.0-36.0) L Red Cell Distribution Width 16.6 % (11.6-14.8) H Platelet Count 364 K/UL (150-450) Mean Platelet Volume 6.2 FL (6.5-10.1) L Neutrophils (%) (Auto) 36.9 % (45.0-75.0) L Lymphocytes (%) (Auto) 45.8 % (20.0-45.0) H Monocytes (%) (Auto) 7.7 % (1.0-10.0) Eosinophils (%) (Auto) 7.2 % (0.0-3.0) H Basophils (%) (Auto) 2.4 % (0.0-2.0) H Sodium Level 140 mEQ/L (135-145) Potassium Level 4.5 mEQ/L (3.4-4.9) Chloride Level 99 mEQ/L (98-107) Carbon Dioxide Level 28 mEQ/L (20-30) Anion Gap 13 (5-15) Blood Urea Nitrogen 18 mg/dL (7-23) Creatinine 0.8 mg/dL (0.7-1.2) Estimat Glomerular Filtration Rate > 60 mL/min (>60) Glucose Level 88 mg/dL (74-106) Calcium Level 9.4 mg/dL (8.6-10.2) Intake and Output 05/12/16 05/13/16 19:00 07:00 Intake Total 730.0 ml 1510 ml Output Total 1000 ml 1800 ml Balance -270.0 ml -290 ml Intake Oral 480 ml 1260 ml IV Total 250.0 ml 250 ml Output Urine Total 1000 ml 1800 ml # Voids 3 7 Objective General Appearance: WD/WN, no apparent distress, alert EENT: PERRL/EOMI, normal ENT inspection Neck: non-tender, normal alignment, supple, normal inspection Cardiovascular: normal peripheral pulses, normal rate, regular rhythm, no gallop/murmur, no JVD Respiratory/Chest: chest wall non-tender, lungs clear, normal breath sounds, no respiratory distress, no accessory muscle use Abdomen: normal bowel sounds, non tender, soft, no organomegaly, no mass Extremities: other - right arm abscesses 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 S/P incision and drainage 05/09/16. Cont vanco and D/C levaquin per ID (3) Opiate dependence, continuous Assessment & Plan: Cont oxycodone prn and oxycontin routine. Not accepted to [facility] @ [place]; await sober living auth from insurance (4) CHF (congestive heart failure) (5) Hypertension (6) Hypercholesteremia Status: progressing Assessment/Plan Discharge planning: [facility]. D/C on oral bactrim per ID KADIE CAMP May 13, 2016 19:01
[2016-05-13 20:00] VITALS: BP 112/59
[2016-05-14] VITALS: BP 118/32
[2016-05-14 04:00] VITALS: BP 102/58
[2016-05-14 06:32] LABS: BASOPHILS % (AUTO) 2.5 % (0.0-2.0); EOSINOPHILS % (AUTO) 6.4 % (0.0-3.0); LYMPHOCYTES % (AUTO) 44.6 % (20.0-45.0); MEAN CORPUSCULAR HEMOGLOBIN 25.3 PG (27.0-31.0); MEAN CORPUSCULAR HGB CONC 30.4 G/DL (32.0-36.0); MEAN CORPUSCULAR VOLUME 83 FL (80-99); MEAN PLATELET VOLUME 6.5 FL (6.5-10.1); MONOCYTES % (AUTO) 6.4 % (1.0-10.0); NEUTROPHILS % (AUTO) 40.1 % (45.0-75.0); PLATELET COUNT 335 K/UL (150-450); RED BLOOD COUNT 4.72 M/UL (4.70-6.10); RED CELL DISTRIBUTION WIDTH 16.8 % (11.6-14.8)
[2016-05-14 06:53] LABS: ANION GAP 12 (5-15); CALCIUM 9.2 mg/dL (8.6-10.2); CARBON DIOXIDE 28 mEQ/L (20-30); CHLORIDE 101 mEQ/L (98-107); CREATININE 0.8 mg/dL (0.7-1.2); GLOMERULAR FILTRATION RATE > 60 mL/min (>60); HEMOLYSIS 0; POTASSIUM 4.4 mEQ/L (3.4-4.9); SODIUM 141 mEQ/L (135-145)
[2016-05-14] MEDS: oxyCONTIN 10mg tab ORAL SCH ×2 (09:19→20:37)
--- NOTE | 2016-05-14 10:49 | Discharge Summary ---
Discharge Summary Hospital Course Date of Admission May 06, 2016 at 18:37 Date of Discharge Admitting Diagnosis surg abscess HPI Luis Alberto Nichole is a 56 year old male who was admitted on May 06, 2016 at 18:37 for Surgery Abscess Hospital Course Dictated for Internal Med-Dr Zimmerman no. [id number]. Discharge Discharge Disposition Patient was discharged to Discharge Diagnoses: KADIE CAMP May 14, 2016 10:49
[2016-05-14] MEDS: oxyCODONE 5mg IR tab ORAL PRN ×2 (11:52→19:15)
[2016-05-14 12:00] VITALS: BP 113/81
--- NOTE | 2016-05-14 12:49 | General Progress Note ---
Progress Note Progress Note Afebrile. Bilateral arm I&D sites are healing well. He is pending discharge to a rehab facility. Merritt Warren MD May 14, 2016 12:49
[2016-05-14 16:00] VITALS: BP 122/62
--- NOTE | 2016-05-14 16:53 | Infectious Diseases Prog Note ---
Assessment/Plan Assessment/Plan A) 1) mrsa bilateral arm abscess/cellulitis - s/p I/D, wounds improving, surgery following/notes reviewed 2) hep c, cps, cpm, opiate dependancy, dm, gerd, htn, anemia, ? neuro dx, leukopenia, chf hx, hypercholesteremia, hx renal failure 3) allergies - pcn, fh-nc, mar noted, sh-past smoker, mar noted 4) notes and records reviewed 5) d/w RN and pt P) 1) vancomycin 2) po bactrim upon discharge 3) check labs 4) continue other treatment per primary, wound care per surgery 5) orders entered and noted 6) d/w pharmacy 7) d/w Dr. Savage Subjective Constitutional: Denies: fever HEENT: Denies: congestion Respiratory: Denies: shortness of breath Cardiovascular: Denies: chest pain Gastrointestinal/Abdominal: Denies: diarrhea, nausea, vomiting Genitourinary: Denies: dysuria Neurologic: Denies: headache Psychiatric: Denies: depression Skin: Denies: rash Musculoskeletal: Denies: pain Allergies: Coded Allergies: PENICILLINS (Unverified Allergy, Severe, 09/23/15) 09/23/15 tolerates cefepime Objective Vital Signs Last 24 Hour Vital Signs Date Time Temp Pulse Resp B/P Pulse Ox O2 Delivery O2 Flow Rate FiO2 05/14/16 12:00 96.8 87 18 113/81 98 Room Air 05/14/16 04:00 98.2 78 20 102/58 97 Room Air 05/14/16 00:00 98.0 82 18 118/32 99 Room Air 05/13/16 20:00 97.1 95 18 112/59 98 Room Air Height (Feet): 5 Height (Inches): 11.00 Weight (Pounds): 180 General Appearance: no acute distress HEENT: normocephalic, atraumatic, anicteric, mucous membranes moist, PERRL, EOMI, pharynx normal, supple, no JVD Respiratory/Chest: lungs clear, normal breath sounds, no respiratory distress, no accessory muscle use Cardiovascular: normal rate, regular rhythm, no gallop/murmur, no JVD Abdomen: normal bowel sounds, soft, non tender, no organomegaly, non distended Genitourinary: other - no preston Extremities: no cyanosis Skin: no rash Neurologic/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: 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 grossly normal, alert, responsive Lymphatic: no neck adenopathy Musculoskeletal: no effusion Objective chest x-ray - negative Microbiology Date/Time Source Procedure Growth Status 05/06/16 17:50 Blood Blood Culture - Final NO GROWTH AFTER 5 DAYS Complete 05/09/16 08:05 Wound Gram Stain - Final Complete 05/09/16 08:05 Wound Culture - Final Staphylococcus Aureus - Mrsa Complete 05/06/16 19:13 Hand Right Gram Stain - Final Complete 05/06/16 19:13 Wound Culture - Final Staphylococcus Aureus - Mrsa Complete Laboratory Tests Test 05/14/16 04:50 White Blood Count 7.0 K/UL (4.8-10.8) Red Blood Count 4.72 M/UL (4.70-6.10) Hemoglobin 11.9 G/DL (14.2-18.0) L Hematocrit 39.2 % (42.0-52.0) L Mean Corpuscular Volume 83 FL (80-99) Mean Corpuscular Hemoglobin 25.3 PG (27.0-31.0) L Mean Corpuscular Hemoglobin Concent 30.4 G/DL (32.0-36.0) L Red Cell Distribution Width 16.8 % (11.6-14.8) H Platelet Count 335 K/UL (150-450) Mean Platelet Volume 6.5 FL (6.5-10.1) Neutrophils (%) (Auto) 40.1 % (45.0-75.0) L Lymphocytes (%) (Auto) 44.6 % (20.0-45.0) Monocytes (%) (Auto) 6.4 % (1.0-10.0) Eosinophils (%) (Auto) 6.4 % (0.0-3.0) H Basophils (%) (Auto) 2.5 % (0.0-2.0) H Sodium Level 141 mEQ/L (135-145) Potassium Level 4.4 mEQ/L (3.4-4.9) Chloride Level 101 mEQ/L (98-107) Carbon Dioxide Level 28 mEQ/L (20-30) Anion Gap 12 (5-15) Blood Urea Nitrogen 16 mg/dL (7-23) Creatinine 0.8 mg/dL (0.7-1.2) Estimat Glomerular Filtration Rate > 60 mL/min (>60) Glucose Level 89 mg/dL (74-106) Calcium Level 9.2 mg/dL (8.6-10.2) Current Medications Medications (Trade) Dose Ordered Sig/Carmine Route PRN Reason Start Time Stop Time Status Last Admin Dose Admin Acetaminophen (Tylenol) 650 mg Q4H PRN ORAL Mild Pain/Temp > 100.5 05/06/16 21:15 06/05/16 21:14 Dextrose (Dextrose 50%) STAT PRN IV Hypoglycemia 05/06/16 21:15 06/05/16 21:14 Ondansetron HCl (Zofran) 4 mg EVERY 4 HOURS PRN IVP Nausea & Vomiting 05/06/16 21:15 06/05/16 21:14 Oxycodone HCl (OxyCONTIN) 30 mg Q12HR ORAL 05/14/16 09:00 05/21/16 08:59 05/14/16 09:19 Oxycodone HCl (Roxicodone) 10 mg Q4H PRN ORAL Breakthrough Pain 05/14/16 01:00 05/21/16 00:59 05/14/16 11:52 Vancomycin HCl 1 ea 1 ea DAILY PRN MISC Per rx protocol 05/10/16 14:45 06/09/16 23:59 Vancomycin HCl/ Dextrose (Vancomycin/D5W 250ml) 250 ml @ 166.667 mls/hr Q12H IVPB 05/13/16 19:00 05/18/16 18:59 05/14/16 06:05 SAMUEL AMARO May 14, 2016 16:53
[2016-05-14 20:00] VITALS: BP 123/63
[2016-05-15] VITALS: BP 120/68
[2016-05-15] MEDS: oxyCODONE 5mg IR tab ORAL PRN ×2 (00:38→15:01)
[2016-05-15 04:00] VITALS: BP 108/75
--- NOTE | 2016-05-15 04:08 | Discharge Summary ---
DATE OF ADMISSION: 05/06/2016 DATE OF DISCHARGE: 05/14/2016 ADMITTING DIAGNOSES: 1. Abscess of the bilateral upper extremities. 2. Opiate dependence. 3. Congestive heart failure. 4. Hypercholesterolemia. 5. Hepatitis C. 6. Hypertension. 7. Renal failure. DISCHARGE DIAGNOSES: 1. Abscess of the bilateral upper extremities. 2. Opiate dependence. 3. Congestive heart failure. 4. Hypercholesterolemia. 5. Hepatitis C. 6. Hypertension. 7. Chronic renal failure. HOSPITAL COURSE BY PROBLEM LIST: 1. Absence of right upper extremity. An Infectious Disease consultation was obtained with Dr. Esquivel. A surgery consultation was obtained with Dr. Garcia. The patient underwent incision and drainage of the left upper arm abscess on 05/09/2013. The patient was placed empirically on vancomycin. A wound culture grew out methicillin-resistant Staphylococcus aureus. The patient is to continue Bactrim Double Strength 1 tablet p.o. twice daily for 8 days on discharge. 2. Opiate dependence. The patient received oxycodone during the hospitalization. The patient is to be discharged today to [facility] for rehabilitation. 3. Congestive heart failure, stable during the hospitalization. The patient to follow up with his primary care physician in one week. 4. Hypercholesterolemia. He is to remain on Lipitor 10 mg one tablet p.o. daily. The patient to follow up with his primary care physician in one week. 5. Hepatitis C, chronic. 6. Hypertension. The patient remained off antihypertensive medication during the hospitalization. 7. Renal failure. The patient received intravenous fluids during the hospitalization. Renal failure was thought to be prerenal. Current BUN and creatinine within normal limits. DISCHARGE MEDICATIONS: Please refer to discharge medication list. DISCHARGE INSTRUCTIONS: 1. The patient to be discharged today to [facility] for continued rehabilitation. 2. The patient is to follow up with Dr. Jose Savage in one week. Jose Savage M.D. DR: ELENA JOB#: [id number] CC:
[2016-05-15] MEDS: oxyCONTIN 10mg tab ORAL SCH (08:38)
--- NOTE | 2016-05-15 11:33 | General Surgery Progress Note ---
General Surgery-Progress Note Subjective Procedure Performed I&D left upper extremity abscess Symptoms: improved, voiding well, BM Additional Comments pain much improved. doing better. no complaints. Objective Last 24 Hour Vital Signs Date Time Temp Pulse Resp B/P Pulse Ox O2 Delivery O2 Flow Rate FiO2 05/15/16 04:00 97.7 91 19 108/75 98 Room Air 05/15/16 00:00 99.3 86 17 120/68 98 Room Air 05/14/16 20:00 99.1 97 20 123/63 98 Room Air 05/14/16 16:00 98.1 87 20 122/62 98 Room Air 05/14/16 12:00 96.8 87 18 113/81 98 Room Air I&O Intake and Output 05/14/16 05/15/16 19:00 07:00 Intake Total 970.0 ml 1657 ml Output Total 1280 ml Balance 970.0 ml 377 ml Intake Oral 720 ml 1240 ml IV Total 250.0 ml 417 ml Output Urine Total 1280 ml # Voids 2 3 # Bowel Movements 1 Dressing: dry Wound: clean Drains: none Cardiovascular: RSR Respiratory: clear Abdomen: soft, non-tender Extremities: no edema Assessment Post-op Diagnosis 56 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 also has multiple chronic wounds from prior I&D and infections. states he has had these for a while and attempts care of them himself in the streets sometimes. wounds healing well with dressing changes. once wounds closed and dry can leave open to air. no further surgical intervention currently necessary. Olegario Suero MD May 15, 2016 11:33
[2016-05-15 12:00] VITALS: BP 126/62
[2016-05-15 13:30] LABS: LYMPHOCYTES % (AUTO) 34.7 % (20.0-45.0); MEAN CORPUSCULAR HEMOGLOBIN 25.4 PG (27.0-31.0); MEAN CORPUSCULAR HGB CONC 31.4 G/DL (32.0-36.0); MEAN CORPUSCULAR VOLUME 81 FL (80-99); MEAN PLATELET VOLUME 6.3 FL (6.5-10.1); NEUTROPHILS % (AUTO) 52.4 % (45.0-75.0); PLATELET COUNT 394 K/UL (150-450); RED BLOOD COUNT 5.05 M/UL (4.70-6.10); RED CELL DISTRIBUTION WIDTH 17.1 % (11.6-14.8)
[2016-05-15 13:33] LABS: ANION GAP 14 (5-15); CALCIUM 9.3 mg/dL (8.6-10.2); CARBON DIOXIDE 25 mEQ/L (20-30); CHLORIDE 101 mEQ/L (98-107); CREATININE 0.9 mg/dL (0.7-1.2); GLOMERULAR FILTRATION RATE > 60 mL/min (>60); HEMOLYSIS 3; POTASSIUM 4.9 mEQ/L (3.4-4.9); SODIUM 140 mEQ/L (135-145)
[2016-05-15 14:07] LABS: ALANINE AMINOTRANSFERASE 37 U/L (3-41); ASPARTATE AMINO TRANSFERASE 23 U/L (5-40)
[2016-05-15] MEDS ORDERED: BACTRIM-DS1 EA ORAL (14:43)
[2016-05-15 16:00] VITALS: BP 113/63
[2016-05-15] MEDS ORDERED: Tubing IV Secondary IV ONE (19:12)
[2016-05-15] MEDS ORDERED: NS 275ml ONE (19:12)
--- NOTE | 2016-05-15 19:47 | Discharge Summary ---
Discharge Summary Hospital Course Date of Admission May 06, 2016 at 18:37 Date of Discharge Admitting Diagnosis surg abscess HPI Luis Alberto Nichole is a 56 year old male who was admitted on May 06, 2016 at 18:37 for Surgery Abscess Hospital Course Dictated for Int Med - Dr Zimmerman No. [id number]. Discharge Discharge Disposition Patient was discharged to [facility](05) Discharge Diagnoses: KADIE CAMP May 15, 2016 19:47
--- NOTE | 2016-05-16 06:08 | Discharge Summary ---
DATE OF ADMISSION: 05/06/2016 DATE OF DISCHARGE: 05/15/2016 ADDENDUM The patient is discharged today on 05/15/2016 to [facility]. Jose Savage M.D. DR: Ladarius JOB#: [id number] CC:
== END 2016-05-15 19:13 | disposition home or self-care (01) | DRG 603 ==
LOC: ENRESERVDT → ENRESERVTM → EMR 17:55 → 4W 18:37 → EDBEDREQ 19:14
PROC: 0H9FXZZ Drainage of Right Hand Skin, External Approach (ICD-10-PCS; principal; 2016-05-06)
PROC: 0H9CXZX Drainage of Left Upper Arm Skin, External Approach, Diagnostic (ICD-10-PCS; 2016-05-09)
DX: L02.511 Cutaneous abscess of right hand (principal); F11.20 Opioid dependence, uncomplicated; I50.9 Heart failure, unspecified; L02.414 Cutaneous abscess of left upper limb; L02.413 Cutaneous abscess of right upper limb; Z72.0 Tobacco use; E78.00 Pure hypercholesterolemia, unspecified; B19.20 Unspecified viral hepatitis C without hepatic coma; I12.9 Hypertensive chronic kidney disease with stage 1 through stage 4 chronic kidney disease, or unspecified chronic kidney disease; N18.9 Chronic kidney disease, unspecified; B95.62 Methicillin resistant Staphylococcus aureus infection as the cause of diseases classified elsewhere; G89.4 Chronic pain syndrome; Z88.0 Allergy status to penicillin; K21.9 Gastro-esophageal reflux disease without esophagitis; D64.9 Anemia, unspecified; Z23 Encounter for immunization
CPT/HCPCS: 10060; 36415; 71010; 80048; 80053; 80202; 80301; 80329; 81003; 82550; 82553; 82962; 83605; 84450; 84460; 84484; 85025; 85610; 85730; 87040; 87070; 87181; 87205; 90732; 93005; Q2036